=== PATIENT | male | born 1945 | race Caucasian/White ===

== ENCOUNTER 2017-05-23 18:50 | Emergency (ER) | payer MEDICARE ==
[~2017-05-23] VITALS: Ht 180.3 cm; Wt 103.2 kg
[2017-05-23 18:55] VITALS: TEMP 97.3
[2017-05-23 19:17] LABS: BASO # 0.1 (0.0-0.2); BASO % 1.1 % (0.0-2.0); EOS # 0.3 (0.0-0.7); EOS % 3.3 % (0-4.0); GRAN % 72.1 % (42.2-75.2); LYMPH # 1.1 (1.2-3.4); LYMPH % 13.1 % (20.0-51.0); MEAN CELL VOLUME 92 fl (80.0-100.0); MEAN CORPUSCULAR HEMOGLOBIN 32 pg (27.0-31.0); MEAN CORPUSCULAR HGB CONC 35 g/dl (33.0-37.0); MEAN PLATELET VOLUME 10.2 fl (7.4-10.4); MONO # 0.7 (0.1-0.6); MONO % 8.6 % (1.7-9.3); PLATELET COUNT 195 K/mm3 (130-400); REDCELL DISTRIBUTION WIDTH-CV 12.9 % (11.5-14.5); WHITE BLOOD COUNT 8.4 K/mm3 (4.8-10.8)
[2017-05-23 19:18] LABS: HEMATOCRIT 34.1 % (42.0-52.0)
[2017-05-23 19:30] LABS: ALBUMIN 4.7 gm/dL (3.5-5.0); BILIRUBIN,TOTAL 0.6 mg/dL (0.0-1.0); CALCIUM 9.6 mg/dL (8.4-10.2); CREATININE, serum 2.85 mg/dL (0.66-1.25); POTASSIUM 3.8 mmol/L (3.4-5.0); TOTAL PROTEIN 7.9 gm/dL (6.4-8.2)
[2017-05-23] MEDS ORDERED: ASPIRIN 81M81 MG/TA2 PO (19:40)
[2017-05-23 19:41] LABS: TROPONIN-I 0.017 ng/mL (0.000-0.034)
[2017-05-23] MEDS ORDERED: CATAPRES0.2 MG PO (19:41)
[2017-05-23] MEDS ORDERED: PLAVIX 75MG TAB75 MG PO (19:41)
[2017-05-23] MEDS ORDERED: COREG 25MG25 MG/TAB PO (19:41)
[2017-05-23] MEDS ORDERED: NORVASC 10MG10 MG PO (19:41)
[2017-05-23] MEDS ORDERED: APRESOLINE 25MG25 MG PO (19:42)
[2017-05-23 19:49] LABS: INR 1.1 (0.8-3.0); PROTHROMBIN TIME 11.7 SECONDS (9.7-12.8)
[2017-05-23] MEDS ORDERED: DEMADEX100 MG PO (20:03)
[2017-05-23] MEDS ORDERED: LIPITOR 80MG80 MG PO (20:05)
[2017-05-23] MEDS ORDERED: CATAPRES0.3 MG PO (20:05)
[2017-05-23] MEDS ORDERED: HUMULIN 70/3100 U/M1 SQ ×2 (20:06→20:07)
[2017-05-23] MEDS ORDERED: CARDURA 2MG2 MG PO (20:06)
[2017-05-23 21:50] VITALS: BP 158/78; PULSE 64
== END 2017-05-23 21:50 | disposition home or self-care (01) ==
LOC: COL.ER 18:50
PROVIDERS: Family Medicine
DX: R55 Syncope and collapse (principal); T82.49XA Other complication of vascular dialysis catheter, initial encounter; E11.22 Type 2 diabetes mellitus with diabetic chronic kidney disease; I12.0 Hypertensive chronic kidney disease with stage 5 chronic kidney disease or end stage renal disease; N18.6 End stage renal disease; Z99.2 Dependence on renal dialysis; I25.10 Atherosclerotic heart disease of native coronary artery without angina pectoris; I25.2 Old myocardial infarction; Z95.5 Presence of coronary angioplasty implant and graft; Z79.02 Long term (current) use of antithrombotics/antiplatelets; Z79.4 Long term (current) use of insulin

== ENCOUNTER → 2017-05-24 | Outpatient (CLI) | payer MEDICARE ==
[~2017-05-24] VITALS: Ht 180.3 cm; Wt 99.0 kg
[~2017-05-24] MED LIST: APRESOLINE 25MG25 MG PO; ASPIRIN 81M81 MG/TA2 PO; CARDURA 2MG2 MG PO; CATAPRES0.2 MG PO; CATAPRES0.3 MG PO; COREG 25MG25 MG/TAB PO; DEMADEX100 MG PO; HUMULIN 70/3100 U/M1 SQ; LIPITOR 80MG80 MG PO; NORVASC 10MG10 MG PO; PLAVIX 75MG TAB75 MG PO
[2017-05-24 15:30] VITALS: BP 158/72; PULSE 60
== END ==
LOC: COL.RAD 13:10
DX: Z49.01 Encounter for fitting and adjustment of extracorporeal dialysis catheter (principal); T82.598A Other mechanical complication of other cardiac and vascular devices and implants, initial encounter

== ENCOUNTER 2017-05-29 12:36 | Outpatient (CLI) | payer MEDICARE ==
[~2017-05-29] VITALS: Ht 180.3 cm; Wt 101.0 kg
[2017-05-29] VITALS (8 sets, daily range): BP systolic 135–149; BP diastolic 52–82; PULSE 60–67; TEMP 98.1–98.5
== END 2017-05-29 19:15 | disposition home or self-care (01) ==
LOC: COL.CAR 12:36
DX: T82.43XA Leakage of vascular dialysis catheter, initial encounter (principal); I25.10 Atherosclerotic heart disease of native coronary artery without angina pectoris; E11.9 Type 2 diabetes mellitus without complications; I10 Essential (primary) hypertension; Z79.01 Long term (current) use of anticoagulants; Z79.4 Long term (current) use of insulin
CPT/HCPCS: C1751; C1769; J0690; J1644; J2250; J3010; J7120

== ENCOUNTER → 2017-07-26 | Outpatient (CLI) | payer MEDICARE ==
[~2017-07-26] VITALS: Ht 180.3 cm; Wt 45.4 kg
[2017-07-26 11:24] VITALS: BP 152/73; PULSE 66
[2017-07-26 12:32] VITALS: BP 116/57; PULSE 61
== END ==
LOC: COL.RAD 10:58
DX: Z45.2 Encounter for adjustment and management of vascular access device (principal)

== ENCOUNTER 2018-01-05 09:57 | Outpatient (CLI) | payer MEDICARE ==
[~2018-01-05] VITALS: Ht 180.3 cm; Wt 101.8 kg
[2018-01-05] VITALS (9 sets, daily range): BP systolic 132–179; BP diastolic 61–82; PULSE 54–103; TEMP 97.2
[~2018-01-05 09:57] MED LIST changes: -CATAPRES0.3 MG PO
[2018-01-05] MEDS ORDERED: NITROSTAT0.4 MG/TAB SL (10:45)
[2018-01-05] MEDS ORDERED: DEMADEX100 MG PO (10:45)
[2018-01-05] MEDS ORDERED: TYLENOL 325MG325 MG PO (10:46)
[2018-01-05] MEDS ORDERED: STOOL SOFTENER100 M2 PO (10:46)
[2018-01-05] MEDS ORDERED: TUMS500 MG PO (10:46)
== END 2018-01-05 14:54 | disposition home or self-care (01) ==
LOC: COL.CAR 09:57
DX: T82.858A Stenosis of other vascular prosthetic devices, implants and grafts, initial encounter (principal); I25.119 Atherosclerotic heart disease of native coronary artery with unspecified angina pectoris; N40.0 Benign prostatic hyperplasia without lower urinary tract symptoms; E78.5 Hyperlipidemia, unspecified
CPT/HCPCS: J1644; J2250; J3010; Q9967

== ENCOUNTER 2019-01-05 11:50 | Inpatient (IN) | payer MEDICARE ==
[2019-01-05] VITALS (163 sets, daily range): BP systolic 137–148; BP diastolic 51–100; PULSE 70; TEMP 98.2; O2SAT 93–100
[~2019-01-05] VITALS: Ht 180.3 cm; Wt 105.2 kg
[~2019-01-05 11:50] MED LIST changes: +NITROSTAT0.4 MG/TAB SL; +STOOL SOFTENER100 M2 PO; +TUMS500 MG PO; +TYLENOL 325MG325 MG PO
[2019-01-05 12:46] LABS: BASO # 0.1 (0.0-0.2); BASO % 0.6 % (0.0-2.0); EOS # 0.2 (0.0-0.7); GRAN # 5.7 (1.4-6.5); GRAN % 71.2 % (42.2-75.2); HEMOGLOBIN 10.4 g/dl (13.5-18.0); LYMPH # 1.3 (1.2-3.4); LYMPH % 15.8 % (20.0-51.0); MEAN CELL VOLUME 100 fl (80.0-100.0); MEAN CORPUSCULAR HEMOGLOBIN 33 pg (27.0-31.0); MEAN CORPUSCULAR HGB CONC 33 g/dl (33.0-37.0); MEAN PLATELET VOLUME 10.8 fl (7.4-10.4); MONO # 0.7 (0.1-0.6); MONO % 8.4 % (1.7-9.3); PLATELET COUNT 163 K/mm3 (130-400); RED BLOOD COUNT 3.12 M/mm3 (4.20-5.60); REDCELL DISTRIBUTION WIDTH-CV 12.6 % (11.5-14.5)
[2019-01-05 12:47] LABS: HEMATOCRIT 31.3 % (42.0-52.0)
[2019-01-05 12:58] LABS: ALANINE AMINOTRANSFERASE 35 U/L (21-72); ALBUMIN 4.2 gm/dL (3.5-5.0); ALKALINE PHOSPHATASE 90 U/L (50-136); ANION GAP 14 mmol/L (7-16); AST,SGOT 24 U/L (15-37); BILIRUBIN,TOTAL 0.3 mg/dL (0.0-1.0); BLOOD UREA NITROGEN 117 mg/dL (9-20); CALCIUM 9.5 mg/dL (8.4-10.2); CARBON DIOXIDE 22 mmol/L (22-30); CHLORIDE 103 mmol/L (98-107); GLUCOSE 126 mg/dL (74-106); LIPASE 210 U/L (23-300); MAGNESIUM 3.2 mg/dL (1.6-2.3); SODIUM 139 mmol/L (137-145); TOTAL PROTEIN 7.1 gm/dL (6.4-8.2)
[2019-01-05 13:01] LABS: POTASSIUM 6.4 mmol/L (3.4-5.0)
[2019-01-05 13:09] LABS: TROPONIN-I < 0.012 ng/mL (0.000-0.035)
--- NOTE | 2019-01-05 14:45 | NUR ---
Report recieved from Lizett CANALES. Will be transporting patient to ICU after giving medications and finishing up medication list.
[2019-01-05] MEDS ORDERED: NEURONTIN100 MG/CAP PO (15:02)
[2019-01-05] MEDS ORDERED: NITRO-BID22 TOP (15:03)
--- NOTE | 2019-01-05 15:45 | NUR ---
Recieved call from ER nurse that patient will be going directly to dialysis before coming to ICU. Heart rate in 40's. at side
--- NOTE | 2019-01-05 19:05 | NUR ---
Received report from Mae Tomas RN. Pt is not on the unit at this time.
--- NOTE | 2019-01-05 19:15 | NUR ---
Report given to Latoya CANALES. Patient continues in dialysis.
--- NOTE | 2019-01-05 19:20 | NUR ---
Received phone report from dialysis nurse Louie. ETA to unit is approx. 10-15 minutes.
--- NOTE | 2019-01-05 19:40 | NUR ---
Pt arrived to ICU01 accompanied by Louie dialysis nurse, in current bed for the unit. Pt also accompanied by personal belongings and dinner tray.
[2019-01-06] VITALS (482 sets, daily range): BP systolic 144–165; BP diastolic 57–72; PULSE 70–89; TEMP 97.6–98.4; O2SAT 94–100
[2019-01-06 04:54] LABS: BASO # 0.1 (0.0-0.2); BASO % 0.6 % (0.0-2.0); EOS # 0.3 (0.0-0.7); EOS % 3.9 % (0-4.0); GRAN # 5.1 (1.4-6.5); GRAN % 64.5 % (42.2-75.2); HEMOGLOBIN 10.5 g/dl (13.5-18.0); LYMPH # 1.6 (1.2-3.4); LYMPH % 19.5 % (20.0-51.0); MEAN CELL VOLUME 99 fl (80.0-100.0); MEAN CORPUSCULAR HEMOGLOBIN 33 pg (27.0-31.0); MEAN CORPUSCULAR HGB CONC 33 g/dl (33.0-37.0); MEAN PLATELET VOLUME 10.5 fl (7.4-10.4); MONO # 0.8 (0.1-0.6); MONO % 10.6 % (1.7-9.3); PLATELET COUNT 195 K/mm3 (130-400); RED BLOOD COUNT 3.21 M/mm3 (4.20-5.60); REDCELL DISTRIBUTION WIDTH-CV 12.6 % (11.5-14.5)
[2019-01-06 04:56] LABS: HEMATOCRIT 31.8 % (42.0-52.0)
[2019-01-06 05:10] LABS: CALCIUM 9.3 mg/dL (8.4-10.2); POTASSIUM 4.8 mmol/L (3.4-5.0)
[2019-01-06 05:19] LABS: CREATININE, serum 8.25 mg/dL (0.66-1.25)
--- NOTE | 2019-01-06 05:27 | NUR ---
Lab called for critical Creat level. Physician not called at this time due to labs trending as expected.
--- NOTE | 2019-01-06 07:05 | NUR ---
Bedside report provided to Rosalind CANALES. Pt alert, resting in bed.
--- NOTE | 2019-01-06 07:15 | NUR ---
Bedside Report received from PARKER Klein. Patient currently resting in bed. VS WNL. Plan of care reviewed. Care taken over.
--- NOTE | 2019-01-06 12:16 | NUR ---
REPORT CALLED TO PARKER GREY. PLAN OF CARE REVIEWED. PATIENT WILL TRANSFER TO ROOM 348
--- NOTE | 2019-01-06 12:53 | NUR ---
Plan is to return home with Spouse Deborah and home health care. Assess: SW's visited with the patient. Patient reports that he resides in [place] with his . Nellynet reports that he uses [facility]. Patient reports that his PCP is Dr. Roper. Patient indicated that he has DPOA ppw at home. Patient is interest in home health care. Patient reports that he has not used home health care in the past and believe he may need it. Patient reports that he has an appointment in three months with his PCP. Patient reports that his will transport him home and that he no longer drives. Action: Educated patient on resources, faxed referral to home health care [place] the [facility] area of coverage. No addtional needs identified at this time.
[2019-01-07 04:25] VITALS: BP 130/54; PULSE 59; TEMP 97.8
[2019-01-07 06:58] LABS: BASO # 0.1 (0.0-0.2); BASO % 0.7 % (0.0-2.0); EOS # 0.3 (0.0-0.7); EOS % 3.3 % (0-4.0); GRAN # 7.1 (1.4-6.5); GRAN % 72.5 % (42.2-75.2); LYMPH # 1.4 (1.2-3.4); LYMPH % 14.4 % (20.0-51.0); MEAN CELL VOLUME 98 fl (80.0-100.0); MEAN CORPUSCULAR HEMOGLOBIN 34 pg (27.0-31.0); MEAN CORPUSCULAR HGB CONC 35 g/dl (33.0-37.0); MEAN PLATELET VOLUME 10.5 fl (7.4-10.4); MONO # 0.8 (0.1-0.6); MONO % 8.1 % (1.7-9.3); PLATELET COUNT 193 K/mm3 (130-400); RED BLOOD COUNT 3.25 M/mm3 (4.20-5.60); REDCELL DISTRIBUTION WIDTH-CV 12.3 % (11.5-14.5)
[2019-01-07 07:00] LABS: HEMATOCRIT 31.9 % (42.0-52.0)
[2019-01-07 07:11] LABS: CALCIUM 8.9 mg/dL (8.4-10.2)
[2019-01-07 07:25] LABS: CREATININE, serum 8.86 mg/dL (0.66-1.25)
--- NOTE | 2019-01-07 08:00 | NUR ---
PATIENT UP TO THE CHAIR WITH PHYSICAL THERAPY THIS MORNING. BREAKFAST TRAY ON BEDSIDE TABLE. PATIENT IS A&O. VSS. TELE IN PLACE. SIGNIFICANT TREMORS NOTED. BOWEL SOUNDS ACTIVE ALL FOUR QUADRANTS. PATIENT TOLERATING FOOD & LIQUIDS WITHOUT ANY COMPLAINTS OF N/V. POSITIVE PEDAL PULSES EQUAL BILATERALLY. AV FISTULA TO LEFT FOREARM NOTED. GOOD BRUIT AUSCULATATED AND THRILL PALPATED OVER AV FISTULA SITE. STRONG PULSE TO LUE. RIGHT AC TO INT. GENERALIZED WEAKNESS NOTED. PATIENT DENIES ANY COMPLAINTS OF SHORTNESS OF BREATH OR DIZZINESS. CALL LIGHT WITHIN REACH. PATIENT DENIES ANY OTHER NEEDS AT THIS TIME.
[2019-01-07 08:02] VITALS: BP 166/62; PULSE 62; TEMP 97.4
--- NOTE | 2019-01-07 10:00 | NUR ---
DR. BENTLEY NOTIFIED OF CRITICAL CREATININE: 8.86. NO ORDERS GIVEN AT THIS TIME.
--- NOTE | 2019-01-07 10:38 | NUR ---
Initial visit; Patient thanked Customer Loyalty Representative for looking in on him and offering God's blessings and keeping him in her prayers.
[2019-01-07 11:49] VITALS: BP 184/51; PULSE 75; TEMP 97.9
--- NOTE | 2019-01-07 13:45 | NUR ---
Lisa, at [facility], reports that they can accept the patient for services. SW to inform the patient and continue to follow.
[2019-01-07 15:19] VITALS: BP 181/65; PULSE 80; TEMP 97.7
[2019-01-07] MEDS ORDERED: COREG 6.256.25 MG/TA PO (16:10)
--- NOTE | 2019-01-07 16:44 | NUR ---
The patient is to discharge back home with his today, 01/07, with home health services for fci/PT/OT through [facility]. No additional needs at this time.
--- NOTE | 2019-01-07 17:45 | NUR ---
PATIENT'S RIGHT AC INT DC'D PER PENDING DISCHARGE. PATIENT TOLERATED WELL. DISCHARGE INSTRUCTIONS REVIEWED WITH PATIENT. ALL QUESTIONS ANSWERED. PATIENT PERSONAL BELONGINGS GATHERED. PATIENT TAKEN TO PERSONAL VEHICLE VIA WHEELCHAIR BY SURGICAL STAFF. PATIENT DISCHARGED.
== END 2019-01-07 17:45 | disposition home health service (06) | DRG 308 ==
LOC: COL.ER 11:50 → ICU 14:18 → SURG 14:18
PROVIDERS: Emergency Medicine; ADMIT Internal Medicine
PROC: 5A1D70Z Performance of Urinary Filtration, Intermittent, Less than 6 Hours Per Day (ICD-10-PCS; principal; 2019-01-05)
DX: I49.8 Other specified cardiac arrhythmias (principal); N18.6 End stage renal disease; I12.0 Hypertensive chronic kidney disease with stage 5 chronic kidney disease or end stage renal disease; N25.81 Secondary hyperparathyroidism of renal origin; E87.5 Hyperkalemia; I95.9 Hypotension, unspecified; E11.22 Type 2 diabetes mellitus with diabetic chronic kidney disease; Z99.2 Dependence on renal dialysis; I25.10 Atherosclerotic heart disease of native coronary artery without angina pectoris; E55.9 Vitamin D deficiency, unspecified; Z85.820 Personal history of malignant melanoma of skin; G25.0 Essential tremor; Z79.4 Long term (current) use of insulin; D63.1 Anemia in chronic kidney disease; Z95.5 Presence of coronary angioplasty implant and graft
CPT/HCPCS: J0610; J1815; J1940; J2310

== ENCOUNTER 2019-11-18 13:19 | Inpatient (IN) | payer MEDICARE ==
[~2019-11-18] VITALS: Ht 177.8 cm; Wt 97.6 kg
[~2019-11-18 13:19] MED LIST changes: +COREG 6.256.25 MG/TA PO; +DULCOLAX TAB5 MG PO; +NEURONTIN100 MG/CAP PO; +NITRO-BID22 TOP; +NOVOLIN R100 U/ML SQ
[2019-11-19 15:55] VITALS: BP 124/51; PULSE 65; TEMP 97.5
[2019-11-19] MEDS ORDERED: CORDARONE200 MG/TAB PO (17:27)
[2019-11-19] MEDS ORDERED: ELIQUIS 5MG PO (17:28)
[2019-11-19] MEDS ORDERED: PHOSLO667 MG PO (17:29)
[2019-11-19] MEDS ORDERED: EPOGEN2000 U/ML IJ (17:31)
[2019-11-19] MEDS ORDERED: DIFLUCAN200 MG PO (17:33)
[2019-11-19] MEDS ORDERED: NOVOLOG 100U100 U/M1 SQ (17:41)
[2019-11-19] MEDS ORDERED: LEVEMIR100 U/ML SQ (17:42)
[2019-11-19] MEDS ORDERED: ISOSORBIDE MON120 MG PO (17:44)
[2019-11-19] MEDS ORDERED: LIPITOR 80MG80 MG PO (17:46)
[2019-11-19] MEDS ORDERED: COREG 25MG25 MG/TAB PO (17:49)
[2019-11-19] MEDS ORDERED: ALBUTEROL0.83 MG/ML IH (17:52)
[2019-11-19] MEDS ORDERED: MUCINEX 60600 MG/TA1 PO (17:53)
[2019-11-19] MEDS ORDERED: APRESOLINE 25MG25 MG PO (17:54)
[2019-11-19] MEDS ORDERED: SENNA-S 50 MG-81 TAB PO (17:55)
--- NOTE | 2019-11-19 20:47 | NUR ---
EGG CRATE MATTRESS OVERLAY PLACED ON PATIENT'S BED, AFTER INFORMING PATIENT OF PLACEMENT. BED ALARM ENGAGED.
--- NOTE | 2019-11-19 21:52 | NUR ---
Received report from PARKER Ferro from [facility] this afternoon prior to patient leaving via ambulance to come to [facility] Room 335. She reported that patient is still on a Mechanical Soft diet with nectar thick liquids. He takes his pills whole 1 to 2 pills at a time with pudding. He is diabetic and gets ACHS accuchecks - see special low sliding scale in chart. He uses a urinal and is a 2 person transfer. He received dialysis today prior to leaving [facility]. He had a bowel movement this morning that was soft formed and brown. He has a new allergy to Propofol and caused infusion syndrome. This was put in his allergy list. He has a wound on his bottom. He had a blood transfusion yesterday and his Hgb was 8.4 at 8 AM this morning. He has a swollen testicle, a red coccyx and an old cath site in groin that is scabbed over. Patient arrived via ambulance at 1550 this afternoon and patient was transferred via slide board from ambulance bed to his [facility] bed. Deborah was by his side. Reported this off to night nurse.
[2019-11-20 04:19] VITALS: BP 135/46; PULSE 66; TEMP 97.7
--- NOTE | 2019-11-20 05:27 | NUR ---
PATIENT RESTING WITH EYES CLOSED, DOES NOT AWAKEN WHEN ROOM ENTERED. BREATHING NONLABORED AND EVEN. BED ALARM ENGAGED.
--- NOTE | 2019-11-20 07:34 | NUR ---
PATIENT RESTING IN BED DURING SHIFT CHANGE REPORT GIVEN TO DAY NURSE. BED ALARM ENGAGED
--- NOTE | 2019-11-20 08:00 | NUR ---
SEE MORNING SHIFT ASSESSMENT.
[2019-11-20 16:00] VITALS: BP 104/44; PULSE 63; TEMP 97.4
[2019-11-20 18:00] VITALS: BP 104/44; PULSE 63; TEMP 97.4
--- NOTE | 2019-11-20 20:06 | NUR ---
REPORT GIVEN TO PARKER BASS.
--- NOTE | 2019-11-20 20:15 | NUR ---
Patient rests in bed and assisted up in bed x2 assist. BLE elevated on pillow. Denies pain. BIMS completed and ST ordered. Patient initially disoriented to place states [place] but otherwise oriented to person, time, month and year. HS meds reviewed and given in pudding with HOB 90 degrees.
[2019-11-20 22:13] VITALS: BP 130/40; PULSE 59; TEMP 97.4
--- NOTE | 2019-11-21 00:45 | NUR ---
Patient has been resting with eyes closed on right side. Called for assist at this time onto bedpan and has medium orangish soft bm-cleaned by nurse. Mepilex to bottom CDI. Repostioned to left side.
--- NOTE | 2019-11-21 02:58 | NUR ---
Patient rests with eyes closed. Respirations with ease.
[2019-11-21 04:00] VITALS: BP 140/50; PULSE 59; TEMP 98.5
--- NOTE | 2019-11-21 04:00 | NUR ---
Patient repositioned up in bed and to right side. Denies pain or needs.
[2019-11-21 09:19] VITALS: BP 125/43; PULSE 66
--- NOTE | 2019-11-21 10:25 | NUR ---
Dr. Johnston called this morning asking about an EKG, reported that pt had already had one this morning. Now called RT Rosenda and asked why another order was entered, she is going to discuss with RT Cherelle.
[2019-11-21 12:12] VITALS: BP 90/36; PULSE 65; TEMP 97.5
[2019-11-21 14:37] LABS: BASO # 0.1 (0.0-0.2); BASO % 0.8 % (0.0-2.0); EOS # 0.2 (0.0-0.7); EOS % 3.1 % (0-4.0); GRAN # 5.3 (1.4-6.5); GRAN % 70.3 % (42.2-75.2); LYMPH # 1.4 (1.2-3.4); MEAN CELL VOLUME 104 fl (80.0-100.0); MEAN CORPUSCULAR HGB CONC 31 g/dl (33.0-37.0); MONO # 0.4 (0.1-0.6); MONO % 5.7 % (1.7-9.3); PLATELET COUNT 310 K/mm3 (130-400); RED BLOOD COUNT 2.15 M/mm3 (4.20-5.60); REDCELL DISTRIBUTION WIDTH-CV 16.4 % (11.5-14.5)
[2019-11-21 14:45] LABS: MEAN CORPUSCULAR HEMOGLOBIN 33 pg (27.0-31.0)
[2019-11-21 14:46] LABS: HEMATOCRIT 22.3 % (42.0-52.0)
[2019-11-21 14:50] LABS: ALBUMIN 3.2 gm/dL (3.5-5.0); BILIRUBIN,TOTAL 0.8 mg/dL (0.0-1.0); CALCIUM 8.1 mg/dL (8.4-10.2); CHOLESTEROL RISK RATIO 5.9; CREATININE, serum 5.73 (0.66-1.25); PHOSPHOROUS 3.3 mg/dL (2.5-4.5); POTASSIUM 3.1 mmol/L (3.4-5.0)
[2019-11-21 15:07] LABS: BILIRUBIN UNCONJUGATED 0.5 mg/dL (0.0-1.1); BILIRUBIN,DIRECT 0.2 mg/dL (0.0-0.4)
[2019-11-21 15:47] LABS: IRON,SERUM 39 ug/dL (35-150)
[2019-11-21 15:56] LABS: TOTAL IRON BINDING CAPACITY 255 ug/dL (261-462)
--- NOTE | 2019-11-21 17:17 | NUR ---
Pt returned to I[facility] 335 via wheelchair.
[2019-11-21 18:14] VITALS: BP 151/52; PULSE 68; TEMP 98.4
--- NOTE | 2019-11-21 19:30 | NUR ---
PLACED PT ON BEDPAN. HAD MED LOOSE RED EDILBERTO COLORED STOOL. SENT TO LAB FOR #1 OUT OF 3 STOOL FOR OB. PT NEEDED ASSISTANCE WITH TOILETING HYGIENE. CALL LIGHT IN REACH BED ALARM SET.
[2019-11-21 20:00] VITALS: BP 127/45; PULSE 71; TEMP 97.8
--- NOTE | 2019-11-21 20:00 | NUR ---
PT SITTING UP IN BED . TOOK HS MEDS WITH PUDDING. CONTINUED ASPIRATION PRECAUTIONS. NO CHOKING AT THIS TIME. DENIES PAIN. ADMITS TO SHORTNESS OF BREATH. O2 SAT 88-90%- ADDED O2 AT 1L NC. SEE ASSESSMENT FOR LUNG SOUNDS. PT VERY FATIGUED. PT HAS CONTINUOUS TREMORS TO BILAT EXTREMITIES. CALL LIGHT IN REACH. BED ALARM SET. PLAN FOR DIALYSIS AND 2UNITS PRBCS TOMORROW. PT VERBALIZES UNDERSTANDING
--- NOTE | 2019-11-21 21:26 | NUR ---
#1 STOOL FOR OB- NEGATIVE.
--- NOTE | 2019-11-21 22:07 | NUR ---
DAY SHIFT SUMMARY: Report from PARKER Black. Pt ate breakfast in bed, set up assist for meals, very weak with tremors to BUE, assist w/ pills w/ pudding and nectar thick liquids, mech soft diet avd to regular food/fluids w/ Dialysis & ADA at lunch after MBS with ST. NATALIE Colin Fistula removed of two BA w/ sm drainage. Pt denied N/V this morning, did report "woozy" at lunch while in wc, to HD in and HD RN reported pt placed on O2@1LPNC d/t SpO2 89%. Pt in bed at shift change, fatigued, bedside report to PARKER Gonzalez. Alarm on, call lt in reach. Dr. Johnston states he would order daily EKG's d/t prolonged QTC interval, saw no orders so placed these and notified RT. One time dose of Potassium per Dr. Olson.
[2019-11-22] VITALS (10 sets, daily range): BP systolic 89–128; BP diastolic 40–78; PULSE 58–71; TEMP 97.2–98.5
--- NOTE | 2019-11-22 09:20 | NUR ---
SW met with the patient to complete an initial intake, the patient is new to [facility]. The patient lives in [place] with his , Deborah. The patient has a cane, a shower chair, and shower handrails. The patient's PCP is Dr. Ruvalcaba and patient receives medications from [facility] in with no difficulties. The patient does not have advanced directives in the EMR but was interested in a DPOA-HC form. Form provided. RADU contacted the patient's , Deborah to discuss family meeting. Deborah was agreeable to a meeting at Monday, 11/26 at 1330 after the team meeting. field services director will continue to follow.
--- NOTE | 2019-11-22 09:30 | NUR ---
Patient working with ST at this time. Patient reported sleeping like a log last night. He spoke with family member on the phone this morning and was in a pleasent mood. Patient denied pain at this time. Patient signed consent form for the 2 units of blood he will receive during dialysis this afternoon. Heart rate regular and continues to be monitored with Tele. No loose stools this AM. Denies any nausea this morning. Will continue to monitor.
[2019-11-22 13:13] LABS: MEAN CELL VOLUME 104 fl (80.0-100.0); MEAN CORPUSCULAR HGB CONC 32 g/dl (33.0-37.0); MEAN PLATELET VOLUME 9.7 fl (7.4-10.4); PLATELET COUNT 280 K/mm3 (130-400); RED BLOOD COUNT 2.04 M/mm3 (4.20-5.60); REDCELL DISTRIBUTION WIDTH-CV 15.9 % (11.5-14.5)
[2019-11-22 13:18] LABS: ALBUMIN 3.2 gm/dL (3.5-5.0); CALCIUM 8.4 mg/dL (8.4-10.2); PHOSPHOROUS 5.3 mg/dL (2.5-4.5); POTASSIUM 4.3 mmol/L (3.4-5.0)
[2019-11-22 13:30] LABS: HEMATOCRIT 21.2 % (42.0-52.0); MEAN CORPUSCULAR HEMOGLOBIN 33 pg (27.0-31.0)
[2019-11-22 13:32] LABS: HEMOGLOBIN 6.7 g/dl (13.5-18.0)
--- NOTE | 2019-11-22 13:54 | NUR ---
Admission QIM scores were reviewed by the team. Code of 4 chosen for eating was determined by team discussion to be the most usual performance before interventions for this patient during the assessment period. Code of 4 chosen for rolling left to right was determined by team discussion to be the most usual performance before interventions for this patient during the assessment period. Code of 3 chosen for sit to lying was determined by team discussion to be the most usual performance for this patient during the assessment period. Code of 3 chosen for lying to sitting on side of bed was determined by team discussion to be the most usual performance for this patient during the assessment period. Code of 2 chosen for sit to stand was determined by team discussion to be the most usual performance before interventions for this patient during the assessment period. Code of 2 chosen for chair/bed-to chair transfer was determined by team discussion to be the most usual performance before interventions for this patient during the assessment period.--Ann Michael,
--- NOTE | 2019-11-22 14:04 | NUR ---
Care given to Dialysis nurse at 2:09 PM Vanessa Hopkins to follow through with monitoring while getting the transfusion.
[2019-11-22 14:26] LABS: ANISOCYTOSIS 1+; BAND 6 % (0-10); EOSINOPHIL 2 % (0-4); LYMPHOCYTE 16 % (20.0-51.0); METAMYELOCYTE 2 % (0-0); NEUTROPHILS 69 % (42.0-75.2); PLATELET ESTIMATE NORMAL (NORMAL)
[2019-11-22 14:43] LABS: RETIC # 0.1 M/mm3 (0.02-0.16); RETIC % 4.9 % (0.5-3.52)
--- NOTE | 2019-11-22 15:00 | NUR ---
Handed off care to dialysis nurse - PARKER Mendez while she administers blood transfusion. She will continue to monitor.
[2019-11-22 15:29] LABS: IRON,SERUM 57 ug/dL (35-150); LACTATE DEHYDROGENASE 818 U/L (313-618)
--- NOTE | 2019-11-22 17:00 | NUR ---
Received report from Dialysis nurse reporting that she took 1500 ml off patient today. Patient was given the 2 units of blood. VSS prior to leaving dialysis BP 130/59; P 64; T 97.6; 97% on 0.5 Liters oxygen.
--- NOTE | 2019-11-22 18:00 | NUR ---
Patient is resting in bed at this time. Denies any pain. Call light in reach, bed alarm is on and resting comfortable. Will continue to monitor.
[2019-11-23] VITALS (13 sets, daily range): BP systolic 68–146; BP diastolic 41–116; PULSE 47–67; TEMP 87.5–98.2
--- NOTE | 2019-11-23 05:00 | NUR ---
OBTAINED #3 STOOL FOR OB. CONTINUED 1500CC FLUID RESTRICTION. PT RELATES FEELS BETTER THIS AM. STAYED THE NIGHT.
--- NOTE | 2019-11-23 08:43 | NUR ---
Bedside report from PARKER Gonzalez. Pt's Deborah visiting. Pt's strength improving, he took pills himself with pudding and water. Held Elisha, third hemmocult neg, informed pt/. Having BM now with OT. Dressings to coccyx intact. TELE in place. Denies pain. Tremors present. Alert, pleasant.
--- NOTE | 2019-11-23 10:45 | NUR ---
At 0900 after lg BM, pt dizzy with standing, pivoted with OT assist to wc for therapies, sitting in wc playing YES.TAP at 1000 with another dizzy episode, see vitals, returned to room, 2 assist to bed for weakness/dizziness, then upper body visibly shaking, pt reports being cold, fell asleep, BG checked 244, alarm on, HOB at 15*, BLE elevated on two pillows, warm blankets. reports pt got hot last night- unusual for him. Called Yvrose RT about f/u EKG, dailys were not discontinued, did not see today's on chart, they will come soon. Reported concerns to Brooke, surg charge account identification clerk.
--- NOTE | 2019-11-23 14:47 | NUR ---
Tele called, pt has new dysrhythmia, reported to Dr. Medina who ordered new EKG, RT notified. Pt is asleep in bed, resp w/ ease, bed alarm on.
--- NOTE | 2019-11-23 18:09 | NUR ---
Boosted up in bed for supper, alarm on, call lt in reach. Pt reports feeling better this afternoon than this morning. Cut up chicken, assisted with containers. visited again, left. Dr. Medina reviewed EKG, no new changes.
--- NOTE | 2019-11-23 21:30 | NUR ---
PT RESTING IN BED. FATIGUED TONIGHT. CHANGED INTO GOWN W/MOD AMT ASSIST. SL DYSPNEIC WITH ACTIVITY. DENIES PAIN. TELE SR W/ 1ST DEGREE AVB. CALL LIGHT IN REACH. BED ALARM SET.
[2019-11-24] VITALS (7 sets, daily range): BP systolic 119–150; BP diastolic 43–99; PULSE 50–70; TEMP 97.4–98.3
--- NOTE | 2019-11-24 01:45 | NUR ---
TELEMETRY CALLED. RELATED EXTENDED QT. PT RESTING. ASYMPTOMATIC. NOTIFIED VIVIANE WHITE. NO NEW ORDERS.
--- NOTE | 2019-11-24 06:29 | NUR ---
TONGUE RED- THRUSH? PT RELATES PAINFUL.
--- NOTE | 2019-11-24 07:25 | NUR ---
Bedside report from PARKER Gonzalez. Pt was asleep in bed, alarm on, call lt in reach. SHANNON Houston is working with pt prior to breakfast.
--- NOTE | 2019-11-24 12:17 | NUR ---
Per report from PARKER Gonzalez, pt's tongue sore, no excessive redness noted upon visualization, orders for nystatin swish and swallow.
--- NOTE | 2019-11-24 18:42 | NUR ---
Pt called after supper, feeling "woozy" and faint, denies nausea, sitting up in bed, lowered HOB to 40*, cool washcloth to forehead, turned on fan. See VS
--- NOTE | 2019-11-24 21:00 | NUR ---
PT RESTING IN BED. A&O. RELATED HAD ANOTHER SPELL AROUND 1800 TODAY WITH DIZZINESS. DENIES ANY FURTHER EPISODES SINCE THEN. TELEMETRY INTACT. PT WEAK. PT DENIES PAIN. DIALYSIS TOMORROW. SEE ASSESSMENT FOR WOUND CARE TO COCCYX. CALL LIGHT IN REACH. BED ALARM SET.
[2019-11-25] VITALS (17 sets, daily range): BP systolic 108–148; BP diastolic 33–61; PULSE 42–126; TEMP 97.8–99
--- NOTE | 2019-11-25 07:24 | NUR ---
Report from PARKER Gonzalez. Pt was asleep in bed, awakened for breakfast, HOB elevated, set up assist for meal. Phoslo given with first bite of food. Pt takes pills 1-2 at a time with pudding then sips of thin liquids. Pt denied pain this morning. Night nurse reported pt slept well between cares. Pt called prior to 0800 to void. SHANNON Houston and this nurse assisted pt to BSC, using gait belt, FWW, few steps. Needed many attempts to stand, lots of tremors, pt weak. Left pt with Celso. Celso later called as pt was feeling poorly. See VS.
--- NOTE | 2019-11-25 08:30 | NUR ---
Pt was attempting to sit up in bed with SHANNON Houston, when he began having chest pain. Nitro given for pain 5/10 to mid-sternum, pt has known hx of CP. See VS. Called Tele, Rosalind reports not seeing any new rhythm changes. See physician notifications. Dr. Medina ordered cardiology consult, Dr. Salmeron notified and arrived to see pt. Repeated Nitro, pain 4/10 "muscular". Pt tells Dr. Salmeron is hurts to take deep breaths. Stat Labs, stat EKG ordered. Requested assist with IV start, Deb, surgical charge nurse and CHOCO Heller unable to start IV, TIFFNAY Rea here. Asked pt if he wanted nurse to call his , she was reached on cell at [phone], states she will be about an hour in getting here. Awaiting lab results for cardiology to determine next steps. Pt has remained responsive throughout.
[2019-11-25 09:36] LABS: ALBUMIN 3.1 gm/dL (3.5-5.0); BILIRUBIN,TOTAL 0.8 mg/dL (0.0-1.0); CALCIUM 8.3 mg/dL (8.4-10.2); CREATININE, serum 10.95 (0.66-1.25); MAGNESIUM 2.2 mg/dL (1.6-2.3); PHOSPHOROUS 4.5 mg/dL (2.5-4.5); POTASSIUM 4.1 mmol/L (3.4-5.0); TOTAL PROTEIN 6.8 gm/dL (6.4-8.2)
[2019-11-25 09:45] LABS: BASO # 0.1 (0.0-0.2); BASO % 0.4 % (0.0-2.0); EOS # 0.3 (0.0-0.7); EOS % 1.9 % (0-4.0); GRAN # 11.5 (1.4-6.5); GRAN % 81.4 % (42.2-75.2); LYMPH # 1.1 (1.2-3.4); LYMPH % 7.8 % (20.0-51.0); MEAN CELL VOLUME 100 fl (80.0-100.0); MEAN CORPUSCULAR HGB CONC 31 g/dl (33.0-37.0); MEAN PLATELET VOLUME 10.1 fl (7.4-10.4); MONO # 1.1 (0.1-0.6); MONO % 7.9 % (1.7-9.3); PLATELET COUNT 239 K/mm3 (130-400); RED BLOOD COUNT 2.78 M/mm3 (4.20-5.60); REDCELL DISTRIBUTION WIDTH-CV 16.9 % (11.5-14.5)
[2019-11-25 09:47] LABS: TROPONIN-I 0.019 ng/mL (0.000-0.035)
[2019-11-25 09:51] LABS: HEMATOCRIT 27.7 % (42.0-52.0); HEMOGLOBIN 8.6 g/dl (13.5-18.0); MEAN CORPUSCULAR HEMOGLOBIN 31 pg (27.0-31.0)
--- NOTE | 2019-11-25 10:31 | NUR ---
1 mg IV morphine given per Cardiology order. Pt reports it is starting to help a little. arrived, at bedside, reviewed prelim lab results. Started routine VS again.
--- NOTE | 2019-11-25 10:47 | NUR ---
Smith RT for a PRN tx
--- NOTE | 2019-11-25 14:39 | NUR ---
The patient was tranferred to medical floor. SW informed medical floor SW.
--- NOTE | 2019-11-25 20:44 | NUR ---
Report given to Elisa (SP?), medical nurse. Pt ate lunch and transferred in bed to HD with MEGAN Mendez RN. Enc to call if any questions. stayed in room until pt's belongings transferred to medical room 318, sent transfer packet with CAR ATTENDANT on cart of belongings. Pt was resting comfortably in HD session in bed when delivering new face sheet and pt labels to MEGAN Mendez RN.
== END 2019-11-25 13:30 | disposition short-term general hospital (02) | DRG 947 ==
PROVIDERS: Internal Medicine Nephrology; ADMIT Hospitalist
PROC: 5A1D70Z Performance of Urinary Filtration, Intermittent, Less than 6 Hours Per Day (ICD-10-PCS; principal; 2019-11-21)
DX: R53.81 Other malaise (principal); N18.6 End stage renal disease; J96.01 Acute respiratory failure with hypoxia; B37.7 Candidal sepsis; I12.0 Hypertensive chronic kidney disease with stage 5 chronic kidney disease or end stage renal disease; E44.0 Moderate protein-calorie malnutrition; E87.0 Hyperosmolality and hypernatremia; G72.9 Myopathy, unspecified; E66.9 Obesity, unspecified; E55.9 Vitamin D deficiency, unspecified; I25.10 Atherosclerotic heart disease of native coronary artery without angina pectoris; Z66 Do not resuscitate; D63.1 Anemia in chronic kidney disease; E78.1 Pure hyperglyceridemia; I48.91 Unspecified atrial fibrillation; E78.5 Hyperlipidemia, unspecified; I25.2 Old myocardial infarction; I49.5 Sick sinus syndrome; L89.309 Pressure ulcer of unspecified buttock, unspecified stage; H66.90 Otitis media, unspecified, unspecified ear; G89.29 Other chronic pain; G25.0 Essential tremor; M25.559 Pain in unspecified hip; G47.30 Sleep apnea, unspecified; M54.5 Low back pain; E11.22 Type 2 diabetes mellitus with diabetic chronic kidney disease; Z79.02 Long term (current) use of antithrombotics/antiplatelets; Z79.4 Long term (current) use of insulin; Z79.01 Long term (current) use of anticoagulants; Z95.5 Presence of coronary angioplasty implant and graft; Z99.2 Dependence on renal dialysis
CPT/HCPCS: 99222-AI; 99231-AI; 99232-AI; 99233-AI; 99239; J0882; J1644; J1815; J2270; J7030; P9016

== ENCOUNTER 2019-11-25 14:07 | Inpatient (IN) | payer MEDICARE ==
[~2019-11-25] VITALS: Ht 180.3 cm; Wt 94.2 kg
[~2019-11-25 14:07] MED LIST changes: +ALBUTEROL0.83 MG/ML IH; +CORDARONE200 MG/TAB PO; +DIFLUCAN200 MG PO; +ELIQUIS 5MG PO; +EPOGEN2000 U/ML IJ; +ISOSORBIDE MON120 MG PO; +LEVEMIR100 U/ML SQ; +MUCINEX 60600 MG/TA1 PO; +NOVOLOG 100U100 U/M1 SQ; +PHOSLO667 MG PO; +SENNA-S 50 MG-81 TAB PO
[2019-11-25 17:25] VITALS: BP 132/47; PULSE 92; TEMP 98
[2019-11-25 19:57] VITALS: BP 134/43; PULSE 71; TEMP 98
--- NOTE | 2019-11-25 20:00 | NUR ---
Received report from PARKER Pérez. Assessment complete. Alert and oriented. at bedside. C/O headache that pt states is tolerable. Denies any other pain, SOB, CP, or discomfort. Scheduled meds adminstered as ordered. AV fistula to LF with bruit and thrill, dressing in place, no redness or drainage. Tele monitor in place, leads checked. Tremors noted to BUE when asked to hold arms up, no tremors noted at rest. Pt and verbalized understanding of NPO status after midnight for lexiscan in AM. INT to RAC intact, dressing CDI, flushed. Needs met. Call light within reach.
[2019-11-25 23:39] VITALS: BP 156/46; PULSE 75; TEMP 98.3
[2019-11-26] VITALS (14 sets, daily range): BP systolic 78–123; BP diastolic 30–49; PULSE 61–88; TEMP 97.5–98.8
--- NOTE | 2019-11-26 05:14 | NUR ---
Assisted pt to bedpan as requested. No BM was made. Mepilex changed to sacral ulcer using ointment, bright pink center, without drainage. Needs met. Call light within reach.
--- NOTE | 2019-11-26 05:42 | NUR ---
remained at bedside. PT NPO since midnight.
[2019-11-26 05:58] LABS: BASO # 0.1 (0.0-0.2); BASO % 0.6 % (0.0-2.0); EOS # 0.2 (0.0-0.7); EOS % 1.6 % (0-4.0); GRAN # 9.4 (1.4-6.5); GRAN % 76.3 % (42.2-75.2); LYMPH # 1.4 (1.2-3.4); LYMPH % 11.4 % (20.0-51.0); MEAN CELL VOLUME 99 fl (80.0-100.0); MEAN CORPUSCULAR HGB CONC 31 g/dl (33.0-37.0); MEAN PLATELET VOLUME 9.8 fl (7.4-10.4); MONO # 1.2 (0.1-0.6); MONO % 9.3 % (1.7-9.3); PLATELET COUNT 209 K/mm3 (130-400); RED BLOOD COUNT 2.57 M/mm3 (4.20-5.60); REDCELL DISTRIBUTION WIDTH-CV 16.6 % (11.5-14.5)
[2019-11-26 05:59] LABS: HEMATOCRIT 25.5 % (42.0-52.0); MEAN CORPUSCULAR HEMOGLOBIN 31 pg (27.0-31.0)
[2019-11-26 06:05] LABS: ALBUMIN 3.1 gm/dL (3.5-5.0); CALCIUM 8.5 mg/dL (8.4-10.2); CREATININE, serum 9.32 (0.66-1.25); PHOSPHOROUS 4.6 mg/dL (2.5-4.5); POTASSIUM 3.4 mmol/L (3.4-5.0)
--- NOTE | 2019-11-26 07:22 | NUR ---
Report given to PARKER Campuzano.
--- NOTE | 2019-11-26 08:29 | NUR ---
Patient is going down to Nuc. Med for his Lexiscan stress test at this time, present in the room
--- NOTE | 2019-11-26 09:37 | NUR ---
RADU met with the patient's , Deborah (ph#[phone]), to discuss discharge plan. The patient was having a lexiscan. The patient transferred to the medical unit from [facility] for further management. The patient lives in [place] with his . Deborah reports that the patient is independent with ADLs and has a cane. The patient's PCP is Dr. Denys Ruvalcaba and he receives his insulin from [email or web address] and his other medications from [email or web address]. Deborah reports that the patient was just prescribed Eliquis and that she has concerns affording this. She states that she was provided with a free 30-day trial card and their assistance application. Deborah is also interested in applying for Medicaid for the patient. RADU consulted Financial Counselor, Dionna. The patient does not have advanced directives in EMR, but Deborah states that he does have them completed and that she is his DPOA-HC. Deborah reports that their goal is for the patient to return home upon discharge. RADU to continue to follow.
--- NOTE | 2019-11-26 10:34 | NUR ---
Assessment completed, alert/oriented, vital signs stable, denies any further chest pains or discomfort, heart RRR/ SR on tele, lungS CTA / no resp.difficulty noted, he has had lexiscan stress test this morning and we awaiting final reading from [facility] Specialist, present, he remains NPO untill stress test results ae in, denies needs
[2019-11-27 00:05] VITALS: BP 127/49; PULSE 65; TEMP 98.4
[2019-11-27 06:13] VITALS: BP 131/46; PULSE 67; TEMP 100.1
[2019-11-27 07:43] LABS: ALBUMIN 3.1 gm/dL (3.5-5.0); CALCIUM 8.6 mg/dL (8.4-10.2); CREATININE, serum 10.94 (0.66-1.25); PHOSPHOROUS 6.6 mg/dL (2.5-4.5); POTASSIUM 3.8 mmol/L (3.4-5.0)
[2019-11-27 08:10] LABS: BASO # 0.1 (0.0-0.2); BASO % 0.6 % (0.0-2.0); EOS # 0.6 (0.0-0.7); EOS % 6.6 % (0-4.0); GRAN # 6.6 (1.4-6.5); GRAN % 72.5 % (42.2-75.2); LYMPH % 11.1 % (20.0-51.0); MEAN CELL VOLUME 99 fl (80.0-100.0); MEAN CORPUSCULAR HGB CONC 32 g/dl (33.0-37.0); MEAN PLATELET VOLUME 10.1 fl (7.4-10.4); MONO # 0.8 (0.1-0.6); MONO % 8.3 % (1.7-9.3); PLATELET COUNT 214 K/mm3 (130-400); RED BLOOD COUNT 2.61 M/mm3 (4.20-5.60); REDCELL DISTRIBUTION WIDTH-CV 16.1 % (11.5-14.5)
[2019-11-27 08:11] LABS: HEMATOCRIT 25.8 % (42.0-52.0); HEMOGLOBIN 8.2 g/dl (13.5-18.0); MEAN CORPUSCULAR HEMOGLOBIN 31 pg (27.0-31.0)
--- NOTE | 2019-11-27 09:30 | NUR ---
Assessment completed, alert/orienteed, vitals signs stable / low grade temp and on recheck was down to WNL, denies any chest pain or dsicomfort, heart RRR/dstial pulses are palapble, denies any resp.difficulty and lungs are CTA, he is sitting up eating breakfast and is in the room, denies other needs at this time
[2019-11-27 11:27] VITALS: BP 109/49; PULSE 69; TEMP 98.6
[2019-11-27 16:17] VITALS: BP 111/41; PULSE 54; TEMP 98.1
[2019-11-27 19:04] VITALS: BP 112/34; PULSE 59; TEMP 98.5
--- NOTE | 2019-11-27 20:00 | NUR ---
Report received from PARKER Campuzano. Assessment complete. Alert and oriented. Denies any pain or discomfort at this time. RAC INT intact, flushed, dressing changed. LF fistula with bruit and thrill. Meds administered as ordered. Needs met. Call light within reach.
[2019-11-27 23:44] VITALS: BP 123/47; PULSE 73; TEMP 98.2
[2019-11-28 03:28] VITALS: BP 125/49; PULSE 70; TEMP 98.3
--- NOTE | 2019-11-28 05:26 | NUR ---
Pt uneventful during this shift. Made no complaints. Call light within reach.
--- NOTE | 2019-11-28 06:41 | NUR ---
Report given to PARKER Campuzano.
[2019-11-28 07:16] VITALS: BP 120/50; PULSE 71; TEMP 98
[2019-11-28 07:24] LABS: MEAN CELL VOLUME 97 fl (80.0-100.0); MEAN CORPUSCULAR HGB CONC 32 g/dl (33.0-37.0); MEAN PLATELET VOLUME 10.1 fl (7.4-10.4); PLATELET COUNT 256 K/mm3 (130-400); RED BLOOD COUNT 2.53 M/mm3 (4.20-5.60); REDCELL DISTRIBUTION WIDTH-CV 15.6 % (11.5-14.5)
[2019-11-28 07:26] LABS: HEMATOCRIT 24.6 % (42.0-52.0); HEMOGLOBIN 7.8 g/dl (13.5-18.0); MEAN CORPUSCULAR HEMOGLOBIN 31 pg (27.0-31.0)
[2019-11-28 07:32] LABS: CALCIUM 8.4 mg/dL (8.4-10.2); CREATININE, serum 13.09 (0.66-1.25); PHOSPHOROUS 6.3 mg/dL (2.5-4.5); POTASSIUM 3.7 mmol/L (3.4-5.0)
[2019-11-28 08:07] LABS: BAND 7 % (0-10); BASOPHIL 1 % (0-2); EOSINOPHIL 6 % (0-4); LYMPHOCYTE 26 % (20.0-51.0); NEUTROPHILS 58 % (42.0-75.2); PLATELET ESTIMATE NORMAL (NORMAL)
--- NOTE | 2019-11-28 08:32 | NUR ---
Assessment completed, alert/oriented, vital signs stable, denies chest pain or discomfort, denies any SOA or resp.difficulty, lungs CTA/ diminished bases, heart RRR/ distal pulses are palpable, encouraging activity and position changes as patient that stg.II ulcer to coccyx, he has been up ambulating multiple times / day and doing well, is please with improvements, denies othr needs at [facility]
[2019-11-28 11:30] VITALS: BP 98/39; PULSE 54; TEMP 98
--- NOTE | 2019-11-28 13:07 | NUR ---
PATIENT GOING DOWN TO DIAYLSIS AT THIS TIME
[2019-11-28 16:55] VITALS: BP 104/62; PULSE 65
[2019-11-28 20:29] VITALS: BP 117/46; PULSE 75; TEMP 98.5
--- NOTE | 2019-11-28 23:34 | NUR ---
PATIENT DOING WELL TONIGHT. ASSESSMENT DONE. ALERT AND ORIENTED. ASSISTED TO BATHROOM X1 ASSIST TO GET TO STANDING POSITION, THEN STANDBY. GAIT UNSTEADY AND WOBBLY. TREMORS NOTED IN UPPER EXTREMITIES. L FA FISTULA STRONG PULSE. BRUIT AND THRILL PRESENT. INT R AC PATENT AND FLUSHES. WBG 122, NO INSULIN NEEDED. TOOK SCHEDULED MEDICATIONS WITHOUT ISSUE. STAGE 2 COCCYX PRESSURE ULCER COVERED WITH MEPOPLEX. NO FURTHER NEEDS AT THIS TIME. WILL CONTINUE TO MONITOR.
[2019-11-29] VITALS (7 sets, daily range): BP systolic 99–142; BP diastolic 42–90; PULSE 57–78; TEMP 97.8–99.2
[2019-11-29 07:02] LABS: MEAN CELL VOLUME 97 fl (80.0-100.0); MEAN CORPUSCULAR HGB CONC 32 g/dl (33.0-37.0); MEAN PLATELET VOLUME 9.7 fl (7.4-10.4); PLATELET COUNT 264 K/mm3 (130-400); RED BLOOD COUNT 2.57 M/mm3 (4.20-5.60); REDCELL DISTRIBUTION WIDTH-CV 15.5 % (11.5-14.5)
[2019-11-29 07:12] LABS: MEAN CORPUSCULAR HEMOGLOBIN 31 pg (27.0-31.0)
[2019-11-29 07:21] LABS: CALCIUM 8.4 mg/dL (8.4-10.2); CREATININE, serum 9.57 (0.66-1.25); PHOSPHOROUS 3.8 mg/dL (2.5-4.5); POTASSIUM 3.7 mmol/L (3.4-5.0)
[2019-11-29 09:18] LABS: BAND 10 % (0-10); EOSINOPHIL 5 % (0-4); LYMPHOCYTE 20 % (20.0-51.0); METAMYELOCYTE 1 % (0-0); PLATELET ESTIMATE NORMAL (NORMAL)
[2019-11-29 09:43] LABS: NEUTROPHILS 96 % (42.0-75.2); TOXIC GRANULATION PRESENT
--- NOTE | 2019-11-29 11:10 | NUR ---
RADU collaborated with the patient's attending, Dr. Olson. Dr. Olson reports that the patient may be able to discharge next Monday, 12/02, and will need post-acute rehab. SW met with the patient to review discharge plan and to discuss PT/OT's recommendation of SNF and Dr. Olson recommendation. The patient is agreeable to SNF. SW presented and explained the Patient Choice Form and provided him with Medicare.Bevvy's list of nursing homes in the [facility]. The patient preferred 1) [facility]) [facility]. Patient Choice Form signed by the patient and she was provided a copy. RADU contacted and updated the patient's , Deborah. Deborah is supportive of the patient's choices. She states that they have tried [facility] is the past and have denied him, due to transportion needs to dialysis. RADU consulted I[facility] Director, Ann. RADU also attempted to contact Michelle at [facility]. RADU left her a voicemail and faxed over the referral. SW awaiting their screens.
--- NOTE | 2019-11-29 13:36 | NUR ---
Michelle, at [facility], reports that they would not be able to accept the patient. SW to inform the patient and his and will continue to follow.
--- NOTE | 2019-11-29 15:04 | NUR ---
RADU met with the patient to update on the referral to [facility]. The patient then preferred [facility] as his second preference. SW updated the patient's of his second preference and she was supportive of this choice. RADU contacted and faxed a referral to [facility]. SW to continue to follow.
--- NOTE | 2019-11-29 15:48 | NUR ---
Ravi, at [facility], reports that they are able to accept the patient for a skilled stay. SW to inform the patient and his and will continue to follow.
--- NOTE | 2019-11-29 20:10 | NUR ---
Shift assessment complete. Pt resting in bed, awake, a&o, cooperative c cares. Pt denies pain, SOB or any other c/o. No IV access per order. HD AVF noted to L forear, strong bruit/thrill. Tele in place. Pt denies needs. Call light in reach, bed alarm on. Will continue to monitor.
[2019-11-30 03:57] VITALS: BP 134/56; PULSE 65; TEMP 98.1
[2019-11-30 07:15] LABS: MEAN CELL VOLUME 98 fl (80.0-100.0); MEAN CORPUSCULAR HGB CONC 31 g/dl (33.0-37.0); MEAN PLATELET VOLUME 9.7 fl (7.4-10.4); PLATELET COUNT 295 K/mm3 (130-400); RED BLOOD COUNT 2.55 M/mm3 (4.20-5.60); REDCELL DISTRIBUTION WIDTH-CV 15.6 % (11.5-14.5)
[2019-11-30 07:26] LABS: ALBUMIN 2.9 gm/dL (3.5-5.0); CALCIUM 8.4 mg/dL (8.4-10.2); CREATININE, serum 11.06 (0.66-1.25); PHOSPHOROUS 4.1 mg/dL (2.5-4.5); POTASSIUM 3.9 mmol/L (3.4-5.0)
[2019-11-30 07:27] LABS: HEMATOCRIT 24.9 % (42.0-52.0); HEMOGLOBIN 7.8 g/dl (13.5-18.0); MEAN CORPUSCULAR HEMOGLOBIN 31 pg (27.0-31.0)
[2019-11-30 08:08] VITALS: BP 137/51; PULSE 65; TEMP 98
[2019-11-30 10:28] LABS: ANISOCYTOSIS 1+; BAND 11 % (0-10); EOSINOPHIL 5 % (0-4); HYPOCHROMIA 2+; LYMPHOCYTE 16 % (20.0-51.0); METAMYELOCYTE 4 % (0-0); MYELOCYTE 4 % (0-0); NEUTROPHILS 50 % (42.0-75.2); PLATELET ESTIMATE NORMAL (NORMAL)
--- NOTE | 2019-11-30 11:40 | NUR ---
Pt moved from floor to dialysis.
[2019-11-30 16:37] VITALS: BP 128/42; PULSE 68; TEMP 97.7
--- NOTE | 2019-11-30 18:03 | NUR ---
Pt resting in the room, Pt had dialysis late this morning, reported 800ml removed during, no C/O pain, VS have remained stable.
--- NOTE | 2019-11-30 20:40 | NUR ---
Shift assessment complete. Pt resting in bed, awake, a&o, cooperative c cares. Pt denies pain or any other c/o at this time. No IV access per order. HD AVF noted to L forearm, strong bruit/thrill. Tele in place. Pt denies further needs at this time. Call light in reach, bed alarm on. Will continue to monitor.
[2019-11-30 22:56] VITALS: BP 122/45; PULSE 58; TEMP 98.1
[2019-12-01 03:29] VITALS: BP 146/50; PULSE 71; TEMP 97.9
--- NOTE | 2019-12-01 07:53 | NUR ---
Pt sleeping upon entry, easily awakened, no C/O pain at this time, shift assessments complete, left Pt call light in reach, bed in lowest position.
[2019-12-01 08:00] VITALS: BP 94/41; PULSE 68; TEMP 98.5
[2019-12-01 08:31] LABS: MEAN CELL VOLUME 100 fl (80.0-100.0); MEAN CORPUSCULAR HGB CONC 31 g/dl (33.0-37.0); MEAN PLATELET VOLUME 9.8 fl (7.4-10.4); PLATELET COUNT 345 K/mm3 (130-400); REDCELL DISTRIBUTION WIDTH-CV 15.9 % (11.5-14.5)
[2019-12-01 08:40] LABS: HEMATOCRIT 26.1 % (42.0-52.0); MEAN CORPUSCULAR HEMOGLOBIN 31 pg (27.0-31.0)
[2019-12-01 08:57] LABS: ALBUMIN 2.9 gm/dL (3.5-5.0); CALCIUM 8.5 mg/dL (8.4-10.2); CREATININE, serum 8.22 (0.66-1.25); PHOSPHOROUS 3.2 mg/dL (2.5-4.5); POTASSIUM 3.9 mmol/L (3.4-5.0)
[2019-12-01 11:38] VITALS: BP 114/47; PULSE 52; TEMP 98.2
[2019-12-01 12:00] LABS: BAND 9 % (0-10); EOSINOPHIL 3 % (0-4); LYMPHOCYTE 22 % (20.0-51.0); METAMYELOCYTE 5 % (0-0); MYELOCYTE 5 % (0-0); NEUTROPHILS 52 % (42.0-75.2)
[2019-12-01 12:02] LABS: PLATELET ESTIMATE NORMAL (NORMAL)
[2019-12-01 12:03] LABS: HYPOCHROMIA 2+
[2019-12-01 12:06] LABS: ANISOCYTOSIS 1+
[2019-12-01 15:22] VITALS: BP 129/52; PULSE 61; TEMP 97.8
--- NOTE | 2019-12-01 18:31 | NUR ---
Pt rested in the room, no C/O pain today, VS have remained stable.
--- NOTE | 2019-12-01 19:50 | NUR ---
Shift assessment complete. Pt resting in bed, awake, a&o, cooperative c cares. Pt denies pain or any other c/o at this time. No IV access per order. HD AVF noted to L forearm, strong bruit/thrill. Pt denies further needs. Call light in reach, bed alarm on. Will continue to monitor.
[2019-12-01 20:12] VITALS: BP 115/44; PULSE 52; TEMP 97.7
[2019-12-02 00:13] VITALS: BP 143/54; PULSE 65; TEMP 97.9
[2019-12-02 03:44] VITALS: BP 130/45; PULSE 69; TEMP 97.4
[2019-12-02 07:40] VITALS: BP 154/57; PULSE 71; TEMP 97.4
[2019-12-02 07:45] LABS: MEAN CELL VOLUME 100 fl (80.0-100.0); MEAN CORPUSCULAR HGB CONC 31 g/dl (33.0-37.0); MEAN PLATELET VOLUME 9.5 fl (7.4-10.4); PLATELET COUNT 388 K/mm3 (130-400); RED BLOOD COUNT 2.73 M/mm3 (4.20-5.60)
[2019-12-02 07:47] LABS: HEMATOCRIT 27.4 % (42.0-52.0); HEMOGLOBIN 8.4 g/dl (13.5-18.0); MEAN CORPUSCULAR HEMOGLOBIN 31 pg (27.0-31.0)
[2019-12-02 07:58] LABS: ALBUMIN 3.1 gm/dL (3.5-5.0); CALCIUM 8.8 mg/dL (8.4-10.2); CREATININE, serum 10.44 (0.66-1.25); PHOSPHOROUS 3.5 mg/dL (2.5-4.5)
[2019-12-02 10:01] LABS: PATHOLOGY DIFF REVIEW OK
[2019-12-02 10:58] LABS: BAND 11 % (0-10); LYMPHOCYTE 26 % (20.0-51.0); METAMYELOCYTE 3 % (0-0); MYELOCYTE 1 % (0-0); NEUTROPHILS 50 % (42.0-75.2)
[2019-12-02 10:59] LABS: ANISOCYTOSIS 1+; PLATELET ESTIMATE NORMAL (NORMAL)
--- NOTE | 2019-12-02 16:27 | NUR ---
Used Car Salesperson contacted Ravi at [facility] and faxed updates. Patient may discharge tomorrow. Ann, [facility] Director informed SW that she would not be able to accept referral for patient. SW contacted patient's , Deborah to provide update. Deborah states her understanding is that the plan is for patient to discharge to [facility] tomorrow. SW to continue to follow.
[2019-12-02 18:05] VITALS: BP 145/55; PULSE 69; TEMP 98.3
[2019-12-02 20:08] VITALS: BP 155/49; PULSE 75; TEMP 98.1
--- NOTE | 2019-12-02 20:45 | NUR ---
Shift assessment complete. Pt resting in bed, awake, a&o, cooperative c cares. Pt denies pain or any other c/o. No IV access per order. HD AVF noted to L forearm, strong bruit/thrill. Tele in place. Pt denies needs at this time. Call light in reach, bed alarm on. Will continue to monitor.
[2019-12-02 23:34] VITALS: BP 147/50; PULSE 73; TEMP 98.5
[2019-12-03 03:35] VITALS: BP 144/48; PULSE 74; TEMP 97.8
[2019-12-03 07:06] LABS: MEAN CELL VOLUME 99 fl (80.0-100.0); MEAN CORPUSCULAR HGB CONC 32 g/dl (33.0-37.0); MEAN PLATELET VOLUME 9.2 fl (7.4-10.4); PLATELET COUNT 379 K/mm3 (130-400); RED BLOOD COUNT 2.55 M/mm3 (4.20-5.60); REDCELL DISTRIBUTION WIDTH-CV 15.9 % (11.5-14.5)
[2019-12-03 07:10] LABS: HEMATOCRIT 25.3 % (42.0-52.0); MEAN CORPUSCULAR HEMOGLOBIN 31 pg (27.0-31.0)
[2019-12-03 07:16] LABS: CALCIUM 8.5 mg/dL (8.4-10.2); CREATININE, serum 7.97 (0.66-1.25); POTASSIUM 4.1 mmol/L (3.4-5.0)
[2019-12-03 07:38] VITALS: BP 156/61; PULSE 72; TEMP 97.9
[2019-12-03 08:20] LABS: BAND 6 % (0-10); EOSINOPHIL 2 % (0-4); LYMPHOCYTE 24 % (20.0-51.0); METAMYELOCYTE 3 % (0-0); MYELOCYTE 2 % (0-0); NEUTROPHILS 55 % (42.0-75.2); PLATELET ESTIMATE NORMAL (NORMAL)
--- NOTE | 2019-12-03 08:29 | NUR ---
Pt awake and alert this morning, talkative, no C/O pain, shift assessments complete, left Pt call light in reach, bed in lowest position.
[2019-12-03 10:40] VITALS: BP 143/64; PULSE 78; TEMP 97.5
[2019-12-03] MEDS ORDERED: PROTONIX 40MG T40 MG PO (14:10)
[2019-12-03] MEDS ORDERED: DEMADEX100 MG PO (14:11)
[2019-12-03] MEDS ORDERED: ELIQUIS 2.5 PO (14:12)
[2019-12-03] MEDS ORDERED: COREG 6.256.25 MG/TA PO ×2 (14:16)
[2019-12-03] MEDS ORDERED: LEVEMIR FLEX100 U/ML SQ (14:18)
--- NOTE | 2019-12-03 14:18 | NUR ---
Amalgamator was notified that patient ready to discharge today to [facility]. RADU contacted Ravi at [facility] and faxed updates. RADU collaborated with Ravi to set up transport time for 1530. RADU notified Nilo CANALES of transport time. RADU met with patient and presented IM form. Patient understood and provided signature. RADU placed form on chart. RADU contacted patient's , Deborah and provided update.
--- NOTE | 2019-12-03 15:13 | NUR ---
gospel worker faxed discharge orders to [facility].
--- NOTE | 2019-12-03 15:48 | NUR ---
Pt discharged to [facility], Pt transported via their transportation dept.
== END 2019-12-03 15:49 | DRG 313 ==
LOC: MEDICAL 14:07
PROVIDERS: ADMIT Internal Medicine Nephrology
PROC: 5A1D70Z Performance of Urinary Filtration, Intermittent, Less than 6 Hours Per Day (ICD-10-PCS; principal; 2019-11-25)
DX: R07.89 Other chest pain (principal); N18.6 End stage renal disease; B37.7 Candidal sepsis; I12.0 Hypertensive chronic kidney disease with stage 5 chronic kidney disease or end stage renal disease; I25.10 Atherosclerotic heart disease of native coronary artery without angina pectoris; E66.9 Obesity, unspecified; N40.0 Benign prostatic hyperplasia without lower urinary tract symptoms; G25.0 Essential tremor; I45.10 Unspecified right bundle-branch block; G72.9 Myopathy, unspecified; I48.91 Unspecified atrial fibrillation; D63.1 Anemia in chronic kidney disease; E11.22 Type 2 diabetes mellitus with diabetic chronic kidney disease; H90.2 Conductive hearing loss, unspecified; E55.9 Vitamin D deficiency, unspecified; I07.1 Rheumatic tricuspid insufficiency; I25.2 Old myocardial infarction; Z68.30 Body mass index [BMI] 30.0-30.9, adult; Z79.01 Long term (current) use of anticoagulants; Z99.2 Dependence on renal dialysis; Z95.5 Presence of coronary angioplasty implant and graft; Z91.81 History of falling
CPT/HCPCS: A9500; J0882; J1815; J2785; J7030

== ENCOUNTER → 2020-03-17 | Outpatient (CLI) | payer MEDICARE ==
[~2020-03-17] MED LIST changes: +ELIQUIS 2.5 PO; +LEVEMIR FLEX100 U/ML SQ; +PROTONIX 40MG T40 MG PO
== END ==
LOC: ZCOL.LAB 15:00
DX: Z11.59 Encounter for screening for other viral diseases (principal); N18.6 End stage renal disease

== ENCOUNTER 2020-05-08 08:30 | Outpatient (CLI) | payer MEDICARE ==
[~2020-05-08] VITALS: Ht 180.3 cm; Wt 97.5 kg
[2020-05-08 08:50] VITALS: BP 191/90; PULSE 64; TEMP 98.5
[2020-05-08] MEDS ORDERED: COREG 6.256.25 MG/TA PO (09:28)
[2020-05-08] MEDS ORDERED: NOVOLIN 70100 UNIT/2 SQ (09:29)
[2020-05-08] MEDS ORDERED: DEMADEX100 MG PO (09:31)
[2020-05-08] MEDS ORDERED: RENA-VITE1 TAB PO (09:32)
[2020-05-08] MEDS ORDERED: COUMADIN 5MG5 MG/TAB PO (09:33)
[2020-05-08] MEDS ORDERED: COUMADIN 77.5 MG/TAB PO (09:34)
[2020-05-08] MEDS ORDERED: CEPHALEXIN500 M1 PO (10:07)
[2020-05-08 10:13] VITALS: BP 187/85; PULSE 65; TEMP 98.6
== END 2020-05-08 10:28 | disposition home or self-care (01) ==
LOC: COL.CAR 08:30
DX: I48.0 Paroxysmal atrial fibrillation (principal); E11.22 Type 2 diabetes mellitus with diabetic chronic kidney disease; I12.0 Hypertensive chronic kidney disease with stage 5 chronic kidney disease or end stage renal disease; N18.6 End stage renal disease; I25.10 Atherosclerotic heart disease of native coronary artery without angina pectoris; N40.0 Benign prostatic hyperplasia without lower urinary tract symptoms; E78.5 Hyperlipidemia, unspecified; I25.2 Old myocardial infarction; K21.9 Gastro-esophageal reflux disease without esophagitis; E66.9 Obesity, unspecified; M19.90 Unspecified osteoarthritis, unspecified site; Z85.828 Personal history of other malignant neoplasm of skin; Z88.8 Allergy status to other drugs, medicaments and biological substances; Z79.02 Long term (current) use of antithrombotics/antiplatelets; Z79.4 Long term (current) use of insulin; Z79.01 Long term (current) use of anticoagulants; Z99.2 Dependence on renal dialysis

== ENCOUNTER 2020-08-21 19:33 | Emergency (ER) | payer MEDICARE ==
[~2020-08-21] VITALS: Ht 177.8 cm; Wt 97.7 kg
[~2020-08-21 19:33] MED LIST changes: +CEPHALEXIN500 M1 PO; +COUMADIN 5MG5 MG/TAB PO; +COUMADIN 77.5 MG/TAB PO; +NOVOLIN 70100 UNIT/2 SQ; +RENA-VITE1 TAB PO
[2020-08-21 19:40] VITALS: TEMP 97.7
[2020-08-21 20:41] LABS: MEAN CELL VOLUME 99 fl (80.0-100.0); MEAN CORPUSCULAR HGB CONC 33 g/dl (33.0-37.0); MEAN PLATELET VOLUME 9.4 fl (7.4-10.4); PLATELET COUNT 285 K/mm3 (130-400); RED BLOOD COUNT 2.95 M/mm3 (4.20-5.60); REDCELL DISTRIBUTION WIDTH-CV 12.8 % (11.5-14.5)
[2020-08-21 20:42] LABS: HEMATOCRIT 29.1 % (42.0-52.0); HEMOGLOBIN 9.7 g/dl (13.5-18.0); MEAN CORPUSCULAR HEMOGLOBIN 33 pg (27.0-31.0)
[2020-08-21 20:55] LABS: ALBUMIN 3.8 gm/dL (3.5-5.0); BILIRUBIN,TOTAL 0.5 mg/dL (0.0-1.0); CALCIUM 8.8 mg/dL (8.4-10.2); CREATININE, serum 4.42 (0.66-1.25); TOTAL PROTEIN 7.2 gm/dL (6.4-8.2)
[2020-08-21 21:06] LABS: C-REACTIVE PROTEIN 11.6 mg/dL (0.0-0.9)
[2020-08-21 21:16] LABS: INR 5.2 (0.8-3.0); PROTHROMBIN TIME 59.5 SECONDS (9.7-12.8)
[2020-08-21 21:24] LABS: BAND 1 % (0-10); EOSINOPHIL 1 % (0-4); LYMPHOCYTE 15 % (20.0-51.0); MYELOCYTE 1 % (0-0); NEUTROPHILS 75 % (42.0-75.2); PLATELET ESTIMATE NORMAL (NORMAL)
[2020-08-21 21:42] VITALS: BP 186/84; PULSE 65
[2020-08-21] MEDS ORDERED: DOXYCYCLINE 10100 MG PO (21:42)
== END 2020-08-21 22:00 | disposition home or self-care (01) ==
LOC: COL.ER 19:33
PROVIDERS: Emergency Medicine
DX: L98.9 Disorder of the skin and subcutaneous tissue, unspecified (principal); I13.11 Hypertensive heart and chronic kidney disease without heart failure, with stage 5 chronic kidney disease, or end stage renal disease; N18.6 End stage renal disease; I25.10 Atherosclerotic heart disease of native coronary artery without angina pectoris; E11.9 Type 2 diabetes mellitus without complications; Z99.2 Dependence on renal dialysis; Z88.4 Allergy status to anesthetic agent; Z79.02 Long term (current) use of antithrombotics/antiplatelets; Z79.01 Long term (current) use of anticoagulants; Z79.4 Long term (current) use of insulin

== ENCOUNTER 2021-02-20 15:16 | Observation (INO) | payer MEDICARE ==
[2021-02-20] VITALS (35 sets, daily range): BP systolic 132; BP diastolic 51; PULSE 56; TEMP 97.5; O2SAT 93–100
[~2021-02-20] VITALS: Ht 180.3 cm; Wt 98.2 kg
[~2021-02-20 15:16] MED LIST changes: +DOXYCYCLINE 10100 MG PO
[2021-02-20 15:44] LABS: BASO # 0.1 (0.0-0.2); BASO % 0.8 % (0.0-2.0); EOS # 0.2 (0.0-0.7); EOS % 2.5 % (0-4.0); GRAN % 62.3 % (42.2-75.2); HEMATOCRIT 33.2 % (42.0-52.0); HEMOGLOBIN 10.9 g/dl (13.5-18.0); LYMPH # 1.6 (1.2-3.4); LYMPH % 24.8 % (20.0-51.0); MEAN CELL VOLUME 100 fl (80.0-100.0); MEAN CORPUSCULAR HEMOGLOBIN 33 pg (27.0-31.0); MEAN CORPUSCULAR HGB CONC 33 g/dl (33.0-37.0); MEAN PLATELET VOLUME 9.9 fl (7.4-10.4); MONO # 0.6 (0.1-0.6); PLATELET COUNT 249 K/mm3 (130-400); RED BLOOD COUNT 3.33 M/mm3 (4.20-5.60); REDCELL DISTRIBUTION WIDTH-CV 13.3 % (11.5-14.5)
[2021-02-20 15:46] LABS: INR 2.1 (0.8-3.0); PROTHROMBIN TIME 23.4 SECONDS (9.7-12.8)
[2021-02-20 15:48] LABS: ALANINE AMINOTRANSFERASE 26 U/L (4-49); ALBUMIN 4.3 gm/dL (3.5-5.0); ALKALINE PHOSPHATASE 121 U/L (50-136); ANION GAP 11 mmol/L (7-16); AST,SGOT 25 U/L (15-37); BILIRUBIN,TOTAL 0.4 mg/dL (0.0-1.0); BLOOD UREA NITROGEN 24 mg/dL (9-20); CALCIUM 8.9 mg/dL (8.4-10.2); CARBON DIOXIDE 31 mmol/L (22-30); CHLORIDE 96 mmol/L (98-107); CREATININE, serum 4.01 (0.66-1.25); GLUCOSE 78 mg/dL (74-106); POTASSIUM 3.4 mmol/L (3.4-5.0); SODIUM 138 mmol/L (137-145); TOTAL PROTEIN 7.9 gm/dL (6.4-8.2)
[2021-02-20 16:01] LABS: TROPONIN-I < 0.012 ng/mL (0.000-0.035)
[2021-02-20] MEDS ORDERED: ALBUTEROL0.83 MG/ML IH (16:30)
[2021-02-20 19:56] LABS: COLLECTION METHOD IN
[2021-02-20 20:02] LABS: MUCOUS Present /lpf; PH 8 (5-8); SQUAMOUS EPITHELIAL None Seen /hpf; URINE APPEARANCE Clear; URINE BACTERIA Rare /hpf; URINE BILIRUBIN Negative (NEGATIVE); URINE BLOOD Negative (NEGATIVE); URINE COLOR Yellow; URINE GLUCOSE Negative (NEGATIVE); URINE KETONE Negative (NEGATIVE); URINE LEUKOCYTE ESTERASE Negative (NEGATIVE); URINE NITRATE Negative (NEGATIVE); URINE PROTEIN(semi-quant) 2+ (NEGATIVE); URINE RBC 0-2 /hpf; URINE UROBILINOGEN Negative (NEGATIVE); URINE WBC 0-2 /hpf
[2021-02-21] VITALS (7 sets, daily range): BP systolic 139–187; BP diastolic 46–68; PULSE 55–71; TEMP 97.5–98
[2021-02-21 06:19] LABS: BASO % 0.7 % (0.0-2.0); EOS # 0.2 (0.0-0.7); GRAN # 3.4 (1.4-6.5); GRAN % 63.7 % (42.2-75.2); LYMPH # 1.1 (1.2-3.4); LYMPH % 20.4 % (20.0-51.0); MEAN CELL VOLUME 99 fl (80.0-100.0); MEAN CORPUSCULAR HGB CONC 33 g/dl (33.0-37.0); MEAN PLATELET VOLUME 10.2 fl (7.4-10.4); MONO # 0.6 (0.1-0.6); MONO % 11.6 % (1.7-9.3); PLATELET COUNT 210 K/mm3 (130-400); RED BLOOD COUNT 3.05 M/mm3 (4.20-5.60); REDCELL DISTRIBUTION WIDTH-CV 13.3 % (11.5-14.5)
[2021-02-21 06:28] LABS: HEMATOCRIT 30.1 % (42.0-52.0); HEMOGLOBIN 9.9 g/dl (13.5-18.0); MEAN CORPUSCULAR HEMOGLOBIN 32 pg (27.0-31.0)
[2021-02-21 06:36] LABS: ALBUMIN 3.5 gm/dL (3.5-5.0); CALCIUM 8.1 mg/dL (8.4-10.2); CREATININE, serum 5.6 (0.66-1.25); PHOSPHOROUS 3.6 mg/dL (2.5-4.5); POTASSIUM 3.2 mmol/L (3.4-5.0)
--- NOTE | 2021-02-21 06:55 | NUR ---
awake reviewing menu, bedside shift report received from PARKER Jean
--- NOTE | 2021-02-21 10:00 | NUR ---
resting in bed, full assessment completed, reviewed assessment completed by student and in agreement with that assessment, denies needs
--- NOTE | 2021-02-21 11:02 | NUR ---
Dr Salmeron was in to see patient
--- NOTE | 2021-02-21 12:03 | NUR ---
Pt. given 25 mg. of PRN hydralazine for BP 184/66
--- NOTE | 2021-02-21 13:19 | NUR ---
Re-checked BP after administering hydralazine. BP 150/68.
--- NOTE | 2021-02-21 14:18 | NUR ---
Dr Olson in to see patient, reported his K of 3.3 and the report from the medtronic rep regarding his loop recorder, informed Dr Olson tech reports sinus rhythmn with PVCs and that the recorder calls it a-fib
--- NOTE | 2021-02-21 14:32 | NUR ---
WUSN charting reviewed by this instructor, agree with findings and charting.
--- NOTE | 2021-02-21 15:08 | NUR ---
visiting with , denies needs
--- NOTE | 2021-02-21 17:12 | NUR ---
assisted up to bathroom to void
--- NOTE | 2021-02-21 18:40 | NUR ---
awake resting in bed, bedside shift report given to PARKER Carl
--- NOTE | 2021-02-21 19:10 | NUR ---
Received report from Kailey. Seen patient awake in bed. He denies pain. Assisted him to the bathroom. He uses walker and a standby assist. Assisted back to bed. Denies needs at this time.
--- NOTE | 2021-02-21 20:50 | NUR ---
Assesment done. Lungs are clear. He denies pain. INT on right AC flushes well. Informed patient he will have echo vanda. Patient states he had quite a few of bowel movement already. Senokot not given. SCD on bilateral lower ext. Call light within reach.
--- NOTE | 2021-02-21 22:11 | NUR ---
Assisted patient to the bathroom. Patient states he has a sore on his right butt cheek that has a dressing that needs to be changed. He said his dressing was placed last Monday. No open wound noted. Looks like peeled skin. Placed new dressing.
[2021-02-22 00:16] VITALS: BP 158/60; PULSE 85; TEMP 98.6
--- NOTE | 2021-02-22 01:04 | NUR ---
Patient called saying " I think my blood sugar is low and im burning and sweating." Blood glucose taken, it was 51 mg/dl. Gave patient apple juice. Rechecked after 15 minutes and it is now at 77mg/dl. He states he feels much better now but prefers to drink another juice and to have his glucose rechecked again. Rechecked after 15 minutes and it now at 110mg/dl.
[2021-02-22 04:02] VITALS: BP 148/60; PULSE 60; TEMP 98.4
--- NOTE | 2021-02-22 06:03 | NUR ---
Patient states he feels better now. He's been calling for assistance whenever he needs to go to the bathroom. He denies pain. Heart rate had been above 60's.
[2021-02-22 06:06] LABS: BASO # 0.1 (0.0-0.2); BASO % 0.7 % (0.0-2.0); EOS # 0.2 (0.0-0.7); EOS % 3.2 % (0-4.0); GRAN % 59.3 % (42.2-75.2); LYMPH # 1.7 (1.2-3.4); LYMPH % 24.6 % (20.0-51.0); MEAN CELL VOLUME 100 fl (80.0-100.0); MEAN CORPUSCULAR HEMOGLOBIN 33 pg (27.0-31.0); MEAN CORPUSCULAR HGB CONC 33 g/dl (33.0-37.0); MEAN PLATELET VOLUME 10.2 fl (7.4-10.4); MONO # 0.8 (0.1-0.6); MONO % 11.6 % (1.7-9.3); PLATELET COUNT 219 K/mm3 (130-400); RED BLOOD COUNT 3.07 M/mm3 (4.20-5.60); REDCELL DISTRIBUTION WIDTH-CV 13.4 % (11.5-14.5)
[2021-02-22 06:22] LABS: HEMATOCRIT 30.7 % (42.0-52.0)
[2021-02-22 06:22] LABS: ALBUMIN 3.5 gm/dL (3.5-5.0); CALCIUM 8.3 mg/dL (8.4-10.2); CREATININE, serum 7.73 (0.66-1.25); POTASSIUM 3.4 mmol/L (3.4-5.0)
[2021-02-22 07:30] VITALS: BP 153/60; PULSE 63; TEMP 97.9
[2021-02-22 08:24] VITALS: BP 153/54; PULSE 73; TEMP 97.6
--- NOTE | 2021-02-22 08:33 | NUR ---
Pt. was assessed. A&OX4. BP slightly elevated at 153/54. No complaints of pain at this time. Stated that dressing on right upper buttock was changed yesterday evening. No other skin integrity issues present upon assessment. Slight tremor noted in bilateral hands. Roll Winder are equal. No redness on heels/feet. Blood glucose obtained at bedside and result was 136.
--- NOTE | 2021-02-22 09:21 | NUR ---
Pt assessment complete. Pt has a student nurse caring for him this am. Pt is sitting up in bed upon entry, he is A/O x4. His breathing is even and unlabored on RA. Pt denies SOB. No pain at this time. Denies N/V. Mepilex to bottom, CDI. SCD's in place. No needs at this time.
[2021-02-22 11:25] VITALS: BP 157/51; PULSE 67; TEMP 98.2
[2021-02-22] MEDS ORDERED: ISOSORBIDE MON120 MG PO (12:14)
[2021-02-22] MEDS ORDERED: NORVASC2.5 MG PO (12:16)
[2021-02-22] MEDS ORDERED: DEMADEX100 MG PO (12:17)
--- NOTE | 2021-02-22 14:21 | NUR ---
WUSN assessment and charting reviewed by this instructor, agree with documentation.
--- NOTE | 2021-02-22 14:28 | NUR ---
Pt. is currently receiving dialysis. He was not able to eat lunch beforehand but a tray was ordered. Pt. denies any complaints of pain or lightheadedness when I checked on him. No other needs identified at this time.
[2021-02-22 16:34] VITALS: BP 155/56; PULSE 74; TEMP 98.1
--- NOTE | 2021-02-22 17:12 | NUR ---
Discharge instructions and paperwork reviewed with patient. All questions answered at this time. IV to RAC dc'd catheter tip intact. Pt wheeled out at this time.
== END 2021-02-22 17:13 | disposition home or self-care (01) ==
LOC: COL.ER 15:16 → MEDICAL 17:15 → ICU 17:15 → MEDICAL 20:05
PROVIDERS: Nurse Practitioner Primary Care; ADMIT Internal Medicine Nephrology
DX: I49.8 Other specified cardiac arrhythmias (principal); R55 Syncope and collapse; I16.0 Hypertensive urgency; I48.91 Unspecified atrial fibrillation; N18.6 End stage renal disease; I25.10 Atherosclerotic heart disease of native coronary artery without angina pectoris; I25.2 Old myocardial infarction; I12.0 Hypertensive chronic kidney disease with stage 5 chronic kidney disease or end stage renal disease; D63.1 Anemia in chronic kidney disease; E66.9 Obesity, unspecified; E11.22 Type 2 diabetes mellitus with diabetic chronic kidney disease; G47.30 Sleep apnea, unspecified; E55.9 Vitamin D deficiency, unspecified; N25.81 Secondary hyperparathyroidism of renal origin; G89.29 Other chronic pain; M54.30 Sciatica, unspecified side; Z99.2 Dependence on renal dialysis; Z79.899 Other long term (current) drug therapy; Z79.4 Long term (current) use of insulin; Z79.01 Long term (current) use of anticoagulants; Z88.8 Allergy status to other drugs, medicaments and biological substances
CPT/HCPCS: G0378; J1644; J1815; J7030

== ENCOUNTER 2022-09-28 07:11 | Day surgery (SDC) | payer MEDICARE ==
[~2022-09-28] VITALS: Ht 182.9 cm; Wt 93.1 kg
[2022-09-28] VITALS (16 sets, daily range): BP systolic 111–192; BP diastolic 37–150; PULSE 41–60; TEMP 97.3–98.2
[~2022-09-28 07:11] MED LIST changes: +COLACE 100100 MG/CAP PO; +LIPITOR 40MG TA40 MG PO; +NORVASC2.5 MG PO; -SENNA-S 50 MG-81 TAB PO
[2022-09-28 08:11] LABS: HEMATOCRIT 35.8 % (42.0-52.0); HEMOGLOBIN 11.5 g/dl (13.5-18.0); MEAN CELL VOLUME 104 fl (80.0-100.0); MEAN CORPUSCULAR HEMOGLOBIN 34 pg (27-31); MEAN CORPUSCULAR HGB CONC 32 g/dl (33.0-37.0); MEAN PLATELET VOLUME 9.6 fl (7.4-10.4); PLATELET COUNT 199 K/mm3 (130-400); RED BLOOD COUNT 3.43 M/mm3 (4.20-5.60); REDCELL DISTRIBUTION WIDTH-CV 13.4 % (11.5-14.5)
[2022-09-28 08:25] LABS: CALCIUM 8.8 mg/dL (8.4-10.2); CREATININE, serum 7.77 mg/dL (0.72-1.25); POTASSIUM 4.3 mmol/L (3.5-4.5)
[2022-09-28 08:28] LABS: INR 1.7 (0.8-3.0); PROTHROMBIN TIME 19.5 SECONDS (9.7-12.8)
[2022-09-28 08:31] LABS: PARTIAL THROMBOPLASTIN TIME 38.2 SECONDS (26.0-37.0)
[2022-09-28] MEDS ORDERED: REQUIP 1MG T1 MG/TAB PO (08:47)
[2022-09-28] MEDS ORDERED: PROTONIX 40MG T40 MG PO (08:47)
[2022-09-28] MEDS ORDERED: IMDUR 60MG60 MG/TAB PO (08:48)
[2022-09-28] MEDS ORDERED: DEMADEX100 MG PO (08:51)
[2022-09-28] MEDS ORDERED: NORVASC 5MG5 MG/TAB PO (08:52)
[2022-09-28] MEDS ORDERED: SODIUM BICARBO650 MG PO (08:53)
[2022-09-28] MEDS ORDERED: RENVELA800 MG PO (08:53)
[2022-09-28] MEDS ORDERED: TYLENOL 500MG500 MG PO (08:54)
--- NOTE | 2022-09-28 09:35 | NUR ---
See merge for all medication, assessment,intervention, and vital sign times.
--- NOTE | 2022-09-28 10:44 | NUR ---
Report received pt to transfer to [facility].
--- NOTE | 2022-09-28 10:54 | NUR ---
PATIENT RECEIVED FROM DIVISION DIRECTOR TO ROOM 319 AT 10:55. PATIENT IS AWAKE, ALERT, AND ORIENTED X4. BLOOD PRESSRE ELEVATED AT 192/63, HR 60, RR: 17, TEMP: 97.8, O2: 99% ON RA. FAMILY AT BEDSIDE. DENIES ANY PAIN AT THIS TIME. ORIENTED TO ROOM AND CALL LIGHT, DENIES NEEDS AT THIS TIME. EDUCATION PROVIDED ON RADIAL COMPRESSION BAND, PT VERBALIZES UNDERSTANDING. RADIAL PULSES 2+. CALL LIGHT WITHIN REACH.
--- NOTE | 2022-09-28 11:25 | NUR ---
PATIENT WITH BLOOD PRESSURE 192/63, HR 60. CARDIOLOGY UPDATED. NEW ORDERS RECEIVED. PER DAVID FOWLER TO GET BLOOD PRESSURES IN UPPER RIGHT EXTREMITY DUE TO LEFT EXTREMTIY RESTRICTION FROM DIALYSIS.
--- NOTE | 2022-09-28 12:56 | NUR ---
CARDIOLOGY UPDATED REGARDING BRADYCARDIA, PATIENT'S HR IS RANGING FROM 47-60. PATIENT IS ASYMPTOMATIC. CARDIOLOGY ALSO UPDATED REGARDING SCANT BLEEDING TO IV SITE, COBAN APPLIED. NO NEW ORDERS AT THIS TIME.
--- NOTE | 2022-09-28 13:47 | NUR ---
Reviewed discharge instructions for radial heart catheterization. Cleaning site with mild soap and water, pat dry. Discussed monitoring for redness, hot to touch, inflammation, or temperature >100.4. Discussed when to contact the physician for signs of symptoms of complications or DE. Also reviewed risk factors for heart disease. Covered applicable modifiable risk factors including the following: tobacco cessation, HTN, hyperlipidemia, diabetes, overweight/obesity, sedentary lifestyle, and stress/depression. Patient verbalized understanding. Patient declined referral to Cardiac Rehab at this time, has had multiple stents in the past and has never attended Cardiac Rehab. Approx time spend with patient - 10 min face to face.
--- NOTE | 2022-09-28 15:08 | NUR ---
PATIENT CONTINUING TO BE BRADYCARDIC WITH HR RANGING BETWEEN 40-45. CONTINUES TO BE ASYMPTOMATIC. RADIAL BAND WITH SCANT BLEEDING NOTED, AIR REINSERTED, WILL CONTINUE TO MONITOR RADIAL BAND. CARDIOLOGY UPDATED REGARDING BRADYCARDIA, NO NEW ORDERS AT THIS TIME, CONTINUE TO MONITOR PATIENT.
--- NOTE | 2022-09-28 16:42 | NUR ---
AIR REMOVED OUT OF RADIAL COMPRESSION BAND. NO BLEEDING NOTED. BANDAID APPLIED TO AREA. NO SWELLING OR TENDERNESS TO SITE NOTED. HR HAS BEEN BETWEEN 35-50, DR. MUÑOZ UPDATED, NO NEW ORDERS. PATIENT CONTINUES TO BE ASYMPTOMATIC. DENIES PAIN. DENIES NEEDS AT THIS TIME. CALL LIGHT WITHIN REACH, AT BEDSIDE.
--- NOTE | 2022-09-28 19:19 | NUR ---
ADMISSION ASSESSMENT COMPLETED. PATIENT IS ALERT AND ORIENTED X4. DENIES PAIN. LUNGS CTA. HR 49. RADIAL BAND OFF AT THIS TIME, NO BLEEDING NOTED. SCANT BLEEDING NOTED TO RIGHT AC IV. FISTULA TO LEFT FOREARM POSITIVE FOR THRILL AND BRUIT. DENIES NEEDS AT THIS TIME, CALL LIGHT IN PLACE.
[2022-09-29 03:29] VITALS: BP 134/62; PULSE 96; TEMP 98.1
[2022-09-29 03:45] LABS: BASO # 0.1 K/mm3 (0.0-0.2); BASO % 0.7 % (0.0-2.0); EOS # 0.2 K/mm3 (0.0-0.7); EOS % 2.4 % (0.0-4.0); GRAN # 4.8 K/mm3 (1.4-6.5); GRAN % 63.3 % (42.2-75.2); HEMOGLOBIN 11.3 g/dl (13.5-18.0); LYMPH # 1.8 K/mm3 (1.2-3.4); LYMPH % 23.8 % (20.0-51.0); MEAN CELL VOLUME 101 fl (80.0-100.0); MEAN CORPUSCULAR HEMOGLOBIN 33 pg (27-31); MEAN CORPUSCULAR HGB CONC 33 g/dl (33.0-37.0); MEAN PLATELET VOLUME 9.8 fl (7.4-10.4); MONO # 0.7 K/mm3 (0.1-0.6); MONO % 9.4 % (1.7-9.3); PLATELET COUNT 193 K/mm3 (130-400); RED BLOOD COUNT 3.43 M/mm3 (4.20-5.60); REDCELL DISTRIBUTION WIDTH-CV 13.5 % (11.5-14.5)
[2022-09-29 03:47] VITALS: BP 154/57; PULSE 41; TEMP 97.7
[2022-09-29 03:47] LABS: HEMATOCRIT 34.7 % (42.0-52.0)
[2022-09-29 04:00] LABS: CALCIUM 8.8 mg/dL (8.4-10.2); CREATININE, serum 9.6 mg/dL (0.72-1.25)
--- NOTE | 2022-09-29 06:30 | NUR ---
THE PATIENT HAD AN UNEVENTFUL NIGHT. DENIES ANY PAIN. SLEPT VERY WELL. NO CONCERNS.
[2022-09-29 07:46] VITALS: BP 150/44; PULSE 44; TEMP 98.2
--- NOTE | 2022-09-29 08:50 | NUR ---
PT ALERT AND ORIENTED COMING BACK FROM THE BATHROOM WITH THE AID ASSISSTANCE. PT DENIES PAIN. PT CALL LIGHT WITHIN REACH, BED ALARM ON. NO FURTHER NEEDS IDENTIFIED.
--- NOTE | 2022-09-29 09:00 | NUR ---
PT ALERT AND ORIENTED COMING BACK FROM THE BATHROOM WITH THE CNAs HELP. PT DENIES PAIN OR DISCOMFORT. CALL LIGHT WITHIN REACH, BED ALARM ON. VITALS STABLE ON ROOM AIR. NO FURTHER NEEDS IDENTIFIED.
--- NOTE | 2022-09-29 09:55 | NUR ---
Initial visit; Patient thanked Plastic Frame Inserter for coming in and visiting. Patient from [place] and was here for a Procedure from Dr. Bentley. Iker is doing well and thanked Plastic Frame Inserter for offering God's blessings and for keeping him in her prayers.
[2022-09-29] MEDS ORDERED: LIPITOR 80MG80 MG PO (12:30)
[2022-09-29] MEDS ORDERED: RANEXA 500MG T500 MG PO (12:30)
== END 2022-09-29 14:45 | disposition home or self-care (01) ==
LOC: COL.CAR 07:11 → MEDICAL 10:41 → COL.CAR 09-29 14:45
PROVIDERS: Internal Medicine Cardiovascular Disease
DX: I25.10 Atherosclerotic heart disease of native coronary artery without angina pectoris (principal); I25.82 Chronic total occlusion of coronary artery; E11.22 Type 2 diabetes mellitus with diabetic chronic kidney disease; I12.0 Hypertensive chronic kidney disease with stage 5 chronic kidney disease or end stage renal disease; R00.1 Bradycardia, unspecified; E87.20 Acidosis, unspecified; N18.6 End stage renal disease; E83.39 Other disorders of phosphorus metabolism; Z95.5 Presence of coronary angioplasty implant and graft; Z79.4 Long term (current) use of insulin; Z79.899 Other long term (current) drug therapy
CPT/HCPCS: OP; C1725; C1769; C1887; J0583; J1644; J1815; J2250; J3010; Q5105; Q9967

== ENCOUNTER 2023-03-22 15:55 | Inpatient (IN) | payer MEDICARE ==
[~2023-03-22] VITALS: Ht 180.3 cm; Wt 96.8 kg
[~2023-03-22 15:55] MED LIST changes: +IMDUR 60MG60 MG/TAB PO; +NORVASC 5MG5 MG/TAB PO; +RANEXA 500MG T500 MG PO; +RENVELA800 MG PO; +REQUIP 1MG T1 MG/TAB PO; +SODIUM BICARBO650 MG PO; +TYLENOL 500MG500 MG PO
[2023-03-22] MEDS ORDERED: NORVASC 10MG10 MG PO (17:32)
[2023-03-22] MEDS ORDERED: TYLENOL 325MG325 MG PO (17:33)
[2023-03-22] MEDS ORDERED: COUMADIN 5MG5 MG/TAB PO (17:33)
[2023-03-22] MEDS ORDERED: COUMADIN 77.5 MG/TAB PO (17:34)
[2023-03-22] MEDS ORDERED: LIPITOR 40MG TA40 MG PO (17:35)
[2023-03-22 18:48] VITALS: BP 123/49; PULSE 60; TEMP 101.7
[2023-03-22 19:28] LABS: HEMOGLOBIN 10.6 g/dl (13.5-18.0); MEAN CELL VOLUME 104 fl (80.0-100.0); MEAN CORPUSCULAR HEMOGLOBIN 34 pg (27-31); MEAN CORPUSCULAR HGB CONC 33 g/dl (33.0-37.0); PLATELET COUNT 151 K/mm3 (130-400); RED BLOOD COUNT 3.11 M/mm3 (4.20-5.60); REDCELL DISTRIBUTION WIDTH-CV 13.8 % (11.5-14.5)
[2023-03-22 19:30] LABS: HEMATOCRIT 32.4 % (42.0-52.0)
[2023-03-22 19:40] VITALS: BP 109/39; PULSE 55; TEMP 98.9
[2023-03-22 19:42] LABS: ALBUMIN 2.6 gm/dL (3.4-4.8); CREATININE, serum 10.54 mg/dL (0.72-1.25); PHOSPHOROUS 4.1 mg/dL (2.3-4.7); POTASSIUM 5.6 mmol/L (3.5-4.5)
[2023-03-22 20:06] VITALS: BP_SYST 109
[2023-03-22 20:36] LABS: BAND 29 % (0-10); LYMPHOCYTE 12 % (20.0-51.0); METAMYELOCYTE 3 % (0-0); NEUTROPHILS 53 % (42.0-75.2); PLATELET ESTIMATE NORMAL (NORMAL)
[2023-03-22 20:37] LABS: HYPOCHROMIA 1+
--- NOTE | 2023-03-22 21:15 | NUR ---
[address] HAWKINS FOR TYLENOL ORDER D/T NO ORDER SHOWING RECIEVED ORDER FOR TYLENOL 500MG Q4 PRN. ATTEMPTE TO PUT IN MAR WAS STILL BEING USE BY DOROTEO CALLED AT 1910 TO CONFIRM tagga WAS RUNNING AGAIN AND ORDERS TO BE PLACED. PT AT 1999 WAS AFEBRIL AND WITHOUT PAIN, 2117 NO MEDICATION ORDERS SHOWING YET.
--- NOTE | 2023-03-22 21:49 | NUR ---
ATTEMPTED TO CALL DOROTEO 183Nisha ABOUT MEDICATIONS NO ANSWER.
[2023-03-22 23:55] VITALS: BP 136/45; PULSE 50; TEMP 98.1
[2023-03-23] VITALS (14 sets, daily range): BP systolic 132–158; BP diastolic 45–65; PULSE 51–98; TEMP 97.5–98.1
[2023-03-23 07:11] LABS: MEAN CELL VOLUME 104 fl (80.0-100.0); MEAN CORPUSCULAR HEMOGLOBIN 34 pg (27-31); MEAN CORPUSCULAR HGB CONC 32 g/dl (33.0-37.0); MEAN PLATELET VOLUME 10.9 fl (7.4-10.4); PLATELET COUNT 159 K/mm3 (130-400); RED BLOOD COUNT 3.27 M/mm3 (4.20-5.60); REDCELL DISTRIBUTION WIDTH-CV 13.2 % (11.5-14.5)
[2023-03-23 07:15] LABS: HEMATOCRIT 33.9 % (42.0-52.0)
[2023-03-23 07:25] LABS: ALBUMIN 2.7 gm/dL (3.4-4.8); CALCIUM 10.5 mg/dL (8.4-10.2); CREATININE, serum 11.83 mg/dL (0.72-1.25); PHOSPHOROUS 6.1 mg/dL (2.3-4.7); POTASSIUM 5.3 mmol/L (3.5-4.5)
[2023-03-23 08:08] LABS: BAND 19 % (0-10); LYMPHOCYTE 16 % (20.0-51.0); NEUTROPHILS 65 % (42.0-75.2); PLATELET ESTIMATE NORMAL (NORMAL)
--- NOTE | 2023-03-23 11:10 | NUR ---
Initial visit: Pt was out of room. Solvent Station Attendant will try again at a later time.
--- NOTE | 2023-03-23 13:23 | NUR ---
The patient was in dialysis. RADU contacted the patient's , Deborah (ph#[phone]), to discuss discharge plan. The patient lives in [place] with his . Deborah states that the patient is normally independent with ADLs and has a cane, FWW, rollator, and tub transfer bench. He receives dialysis T//S around 0900. [place] [facility] transports the patient to dialysis Monday and and Deborah takes him on Saturdays. He is not receiving any home health at this time. The patient's PCP is Dr. Watson Valencia and he obtains his medications from [facility]. The patient does not have a DPOA-HC in EMR, but Deborah states that the patient does have one completed and that it designates her. Deborah shares that she would ultimately like for the patient to return home, but that things are up in the air and she would need him stronger. She states that the planner chief at [facility] was working with Ravi at [facility] for him to go over there for rehab. She states that she would prefer [facility]. RADU informed her how the patient's insurance is [employer] and the two facilities contacted with Stioa in [place] are [facility] and [facility]. The patient's is agreeable to send referrals to both facilities. Ann, IPR Director, notified RADU that the patient's attending placed an IPR consult. RADU contacted and faxed a referral to [facility] and [facility]. Ravi, at [facility], reports that they would need the patient's chair time to be switched to M/W/F between [id number]. RADU notified DYLAN Jones, with Dr. Olson. Karen states they may not be able to change the patient's chair time, due to that schedule being full. She will let this SW know. *Discharge plan: post-acute rehab. Awaiting screens*
--- NOTE | 2023-03-23 14:13 | NUR ---
Monse, at [facility], reports that they have clinically accepted the patient, but will not have a bed until Monday, unless something changes over the weekend.
--- NOTE | 2023-03-23 22:52 | NUR ---
Patient assessed around 2004. Denies having pain and discomfort. Currently on oxygen at 4 L/min via NC. Has dry, non productive cough. Unable to produce sputum. Telemetry called and stated that HR was 40s-50s. Patient had been resting in bed at that time. Asymptomatic. Dr. Olson here at facility, and clarified with him on when to call. Stated to leave the rate at less than 45, but to only call if he was symptomatic. Updated telemetry. Patient in bed with call light within reach. Bed alarm on.
[2023-03-24] VITALS (12 sets, daily range): BP systolic 135–164; BP diastolic 42–74; PULSE 54–78; TEMP 97.6–98
--- NOTE | 2023-03-24 05:48 | NUR ---
Patient has denied having pain and discomfort this shift. Currently on oxygen at 2 L/min via NC. Voices no questions, needs, or concerns at this time. In bed wtih call light within reach. High fall risk precautions in place. Bed alarm on.
[2023-03-24 07:33] LABS: HEMOGLOBIN 10.4 g/dl (13.5-18.0); MEAN CELL VOLUME 103 fl (80.0-100.0); MEAN CORPUSCULAR HEMOGLOBIN 34 pg (27-31); MEAN CORPUSCULAR HGB CONC 33 g/dl (33.0-37.0); MEAN PLATELET VOLUME 10.8 fl (7.4-10.4); PLATELET COUNT 169 K/mm3 (130-400); REDCELL DISTRIBUTION WIDTH-CV 13.1 % (11.5-14.5)
[2023-03-24 07:34] LABS: HEMATOCRIT 31.8 % (42.0-52.0)
[2023-03-24 07:35] LABS: INR 2.6 (0.8-3.0); PROTHROMBIN TIME 30.2 SECONDS (9.7-12.8)
[2023-03-24 07:46] LABS: ALBUMIN 2.4 gm/dL (3.4-4.8); CALCIUM 9.5 mg/dL (8.4-10.2); CREATININE, serum 9.62 mg/dL (0.72-1.25); PHOSPHOROUS 3.6 mg/dL (2.3-4.7); POTASSIUM 4.6 mmol/L (3.5-4.5)
[2023-03-24 08:18] LABS: BAND 7 % (0-10); LYMPHOCYTE 3 % (20.0-51.0); NEUTROPHILS 85 % (42.0-75.2)
[2023-03-24 08:20] LABS: PLATELET ESTIMATE NORMAL (NORMAL)
--- NOTE | 2023-03-24 08:57 | NUR ---
PATIENT HAS TAKEN MORNING MEDICATIONS AND EATEN BREAKFAST. 1 SMALL BM THIS AM ON BEDPAN. PLAN IS FOR DIALYSIS THIS AM. PATIENT UNDERSTANDS.
--- NOTE | 2023-03-24 10:56 | NUR ---
PATIENT WENT DOWN TO DIALYSIS VIA BED AT 1000. NO ISSUES WITH TRANSFER. PORTABLE OXYGEN TANK 2LNC WITH PATIENT AND CHART ON BED.
--- NOTE | 2023-03-24 12:36 | NUR ---
Warfarin Follow-up Pharmacy Note Current regimen: Warfarin 5 mg SuTuThSa and 7.5 mg MoWeFr LABS: INR 2.6 <- 2 Changes in therapy: Will change Warfarin to 5 mg po qHS starting tonight with jump in INR and while receiving Azithromycin. Pharmacy will continue to closely monitor daily INR levels.
--- NOTE | 2023-03-24 15:56 | NUR ---
SW faxed updates to [facility] and [facility].
--- NOTE | 2023-03-24 17:57 | NUR ---
PATIENT IS HAVING A GOOD DAY. DID COMPLAIN OF PAIN 1X IN DIALYSIS. STATED, "MY LOWER BACK IS HURTING A LITTLE BIT." GAVE 650MG OF TYLENOL. PATIENT STILL HAVING TREMORS DUE TO PARKINSONS, BUT THEY SEEM TO HAVE DOWN SOMEWHAT THIS SHIFT. NURSING NOTICED SLIGHT CHANGE WHILE PATIENT IS FEEDING HIMSELF MEALS. BED IS LOW. ALARM ON. [id number] UP. CALL LIGHT NEXT TO PATIENT.
[2023-03-25] VITALS (15 sets, daily range): BP systolic 151–167; BP diastolic 43–59; PULSE 53–64; TEMP 97.5–102.1
--- NOTE | 2023-03-25 01:11 | NUR ---
Shift assessment performed. He is alert and oriented. He is on 2 L O2. He is having tremors consistent with his Parkinsons Disease. There is some mild redness present on his bottom that is blanchable. At about 2330 his BP read at 164/50. PRN Apresoline administered as ordered. While administering this medication, the patient choked on his water and had a coughing episode. I asked the pt and he states that his drinks are always thickened at home. He has been seen by speech but only concerning his language. A new consult for speech will be ordered and meds will be given with applesauce for remainer of the shift.
[2023-03-25 06:58] LABS: HEMOGLOBIN 10.6 g/dl (13.5-18.0); MEAN CELL VOLUME 104 fl (80.0-100.0); MEAN CORPUSCULAR HEMOGLOBIN 33 pg (27-31); MEAN CORPUSCULAR HGB CONC 32 g/dl (33.0-37.0); MEAN PLATELET VOLUME 10.7 fl (7.4-10.4); PLATELET COUNT 190 K/mm3 (130-400); RED BLOOD COUNT 3.21 M/mm3 (4.20-5.60); REDCELL DISTRIBUTION WIDTH-CV 13.2 % (11.5-14.5)
[2023-03-25 06:59] LABS: HEMATOCRIT 33.4 % (42.0-52.0)
[2023-03-25 07:02] LABS: INR 2.7 (0.8-3.0); PROTHROMBIN TIME 31.5 SECONDS (9.7-12.8)
[2023-03-25 07:14] LABS: ALBUMIN 2.5 gm/dL (3.4-4.8); CALCIUM 9.8 mg/dL (8.4-10.2); CREATININE, serum 8.62 mg/dL (0.72-1.25); PHOSPHOROUS 2.9 mg/dL (2.3-4.7); POTASSIUM 4.7 mmol/L (3.5-4.5)
[2023-03-25 08:13] LABS: BAND 12 % (0-10); EOSINOPHIL 1 % (0-4); LYMPHOCYTE 13 % (20.0-51.0); NEUTROPHILS 66 % (42.0-75.2)
[2023-03-25 08:14] LABS: PLATELET ESTIMATE NORMAL (NORMAL)
--- NOTE | 2023-03-25 08:16 | NUR ---
Pt sitting up in bed eating breakfast upon this nurse's entry. A&Ox4. AM medications given in applesauce PO w/o difficulty. Shift assessment performed. Hand editor map strong bilaterally. Pupills are PERRLA. No speech deficits noted. Respirations are even and unlabored w/ O2 on @ 2L via NC. Pt denies SOA or dyspnea. No cyanosis to lips or extremities. Pt does have visible tremors d/t Parkinson's. No complaints or concerns. Call light in reach.
--- NOTE | 2023-03-25 10:42 | NUR ---
Karen RICHARDSON consults regarding patient's discharge plan. Patient is recommended for IPR over 2 pending SNF referral based on need for more intensive rehabilitation services. Regulatory Agency Director reviewed patient record noting no referral to IPR yet made at this time. Regulatory Agency Director to complete IPR referral this date.
--- NOTE | 2023-03-25 14:43 | NUR ---
Pt events and promotions assistant light requesting PRN APAP. Upon entry to room, pt is sitting in bed watching tv. No signs of distress or discomfort apparent. Pt reports that after PT, he began to have pain in his back and knees 8/10 aching. PRN APAP administered in apple sauce. Pt tolerates this well. No other complaints or concerns. Call light in reach.
--- NOTE | 2023-03-25 16:45 | NUR ---
This nurse was informed by PCT that pt. temp was elevated @ 101.1 axillary d/t pt being a primarily oral breather. This nurse checked pt temp orally and temp 98.4. Axillary temp checked again and 102.1 reading. This nurse consulted w/ PARKER Roa on notification process for provider. Rectal temp to be collected for most accurate temp. Pt reporting need to have BM. Pt positioned onto bedpan. Large soft brown BM voided. Pericare provided. Rectal temp 101.6. Pt is reporting feeling "hot" and has flat sheet covering him. Pt denies any other febrile symptoms. Respirations are even and unlabored w/ O2 on @ 2L via NC. Pt denies SOA or dyspnea. Will attempt to contact provider.
--- NOTE | 2023-03-25 18:29 | NUR ---
Pt temp rechecked. 101.3 axillary. Pt cont to report feeling "hot" but has thin flat sheet on. Temperature of room decreased. APAP 1000mg PRN admin PO w/ applesauce. Pt tolerated well. Respirations are even and unlabored on O2 @ 2L via NC. Pt denies SOA or dyspnea. No cyanosis to lips or extremities. Pt denies any chills or body aches. Will pass on to shift lab technician nurse to recheck pt temp in one hour after admin per provider INSPECTOR FILTERS verbal order.
[2023-03-26] VITALS (10 sets, daily range): BP systolic 146–181; BP diastolic 41–54; PULSE 48–54; TEMP 97.3–98.7
--- NOTE | 2023-03-26 04:50 | NUR ---
Assessment and meds administered around 2114. A&Ox4. Pt has no more high temperatures. Pt swallowed without difficulty his meds with apple sauce. RFA INT is CDI. LFA fistula is CDI, no dressing. On O2 at 2L per NC. No insulin was needed. Pt was repositioned in bed. Belongings and call light are within reach. Around 99 pt had a small BM formed.
--- NOTE | 2023-03-26 04:57 | NUR ---
PCT notified to this CAN SORTER that pt was complaining of pain on BLE. Tylenols was administered and warm blanket was placed on Lower extremities. Pt reported feeling much better and was able to sleep.
[2023-03-26 07:52] LABS: HEMATOCRIT 30.5 % (42.0-52.0); HEMOGLOBIN 9.7 g/dl (13.5-18.0); MEAN CELL VOLUME 104 fl (80.0-100.0); MEAN CORPUSCULAR HEMOGLOBIN 33 pg (27-31); MEAN CORPUSCULAR HGB CONC 32 g/dl (33.0-37.0); MEAN PLATELET VOLUME 10.5 fl (7.4-10.4); PLATELET COUNT 195 K/mm3 (130-400); RED BLOOD COUNT 2.93 M/mm3 (4.20-5.60); REDCELL DISTRIBUTION WIDTH-CV 13.2 % (11.5-14.5)
[2023-03-26 08:08] LABS: ALBUMIN 2.1 gm/dL (3.4-4.8); CALCIUM 9.4 mg/dL (8.4-10.2); CREATININE, serum 10.41 mg/dL (0.72-1.25); PHOSPHOROUS 3.6 mg/dL (2.3-4.7); POTASSIUM 4.6 mmol/L (3.5-4.5)
[2023-03-26 08:11] LABS: INR 3.2 (0.8-3.0)
[2023-03-26 08:46] LABS: BAND 7 % (0-10); LYMPHOCYTE 12 % (20.0-51.0); METAMYELOCYTE 2 % (0-0)
[2023-03-26 08:47] LABS: NEUTROPHILS 73 % (42.0-75.2); PLATELET ESTIMATE NORMAL (NORMAL)
--- NOTE | 2023-03-26 11:30 | NUR ---
Agree with student nurse assessment of the patient. Patient A&Ox3. VSS 2L NC O2. IV CDI. Denies pain and discomfort. Call light within reach. Bed alarm on
--- NOTE | 2023-03-26 12:38 | NUR ---
Mobile Tester rounds: Patient was in recliner. Stated that it felt good to be out of the bed. Patient had had pneumonia and that made it difficult for him to talk much. Mobile Tester read from a book of Psalms in which each Psalm was more clearly defined. Patient enjoyed the reading. Mobile Tester then read from Psalms until Patient fell asleep. Mobile Tester left room quietly so that Patient could remain asleep.
[2023-03-27] VITALS (11 sets, daily range): BP systolic 146–173; BP diastolic 42–71; PULSE 47–60; TEMP 97.5–98.7
--- NOTE | 2023-03-27 00:42 | NUR ---
Assessment completed around 2039. Medication given per emar. Pt reporting mild abdominal pain, and attempted to use bedpan twice. No BM. When administering his medication INR was 3.2, and this PEN MAKER attempted to call Karen to ask if pt was ok to take his coumadin. Phone call was not answered. Reattempted to call around 2299, since pt was reporting more abdominal pain and reported that he was nauseous and threw up in emesis bag a small amount. Again phone call was not answered. Zofran IV administered per Nichelle Bah RN. BP was 181/50 when checking VS. Hydralazine PO and coumadin were not administered since pt is reporting feeling nauseous at this moment. Pt reporting having trouble having a BM. Attempted to johnson aKren again, and no answer yet. Will continue monitor pt.
--- NOTE | 2023-03-27 01:42 | NUR ---
Pt had a moderate amount of soft BM, and reported feeling better. BP rechecked: 162/45. Pt reports no more nausea. Coumadin given after reviewing pt notes regarding adjusted dose with INR of 3.2. PO hydralazine given as well since pt is tolerating oral meds. Warm blanket given for comfort.
--- NOTE | 2023-03-27 03:18 | NUR ---
Pt reported having abdominal pain again. He attempted to use the bedpan, and had no BM. Passing gas without difficulty. Karen, injection molding engineer answered phone call, and she was informed about pt's abdominal pain with some distension, and late administration of Coumadin, and PO Hydralazine for elevated BP. Pt is no longer having N/V. Verbal orders received to administer Tramadol, PO.
--- NOTE | 2023-03-27 04:29 | NUR ---
Pt had another BM, which less soft and more loose. Pt reports pain relief right after having BM. Pt got repositioned with belongings and call light within reach.
[2023-03-27 07:30] LABS: MEAN CELL VOLUME 101 fl (80.0-100.0); MEAN CORPUSCULAR HGB CONC 33 g/dl (33.0-37.0); MEAN PLATELET VOLUME 10.3 fl (7.4-10.4); PLATELET COUNT 237 K/mm3 (130-400); REDCELL DISTRIBUTION WIDTH-CV 13.2 % (11.5-14.5)
[2023-03-27 07:43] LABS: HEMOGLOBIN 9.7 g/dl (13.5-18.0); MEAN CORPUSCULAR HEMOGLOBIN 33 pg (27-31)
[2023-03-27 07:44] LABS: HEMATOCRIT 29.4 % (42.0-52.0)
[2023-03-27 07:49] LABS: ALBUMIN 2.1 gm/dL (3.4-4.8); CALCIUM 9.5 mg/dL (8.4-10.2); PHOSPHOROUS 4.3 mg/dL (2.3-4.7); POTASSIUM 4.7 mmol/L (3.5-4.5)
--- NOTE | 2023-03-27 07:59 | NUR ---
PT RESTING COMFORTABLY IN BED. AGREE WITH STUDENT DELIA'S ASSESSMENTS THIS AM. PT IS A//O X4, DENIES N/V OR PAIN AT THIS TIME.
[2023-03-27 08:21] LABS: BAND 3 % (0-10); EOSINOPHIL 2 % (0-4); LYMPHOCYTE 11 % (20.0-51.0); METAMYELOCYTE 4 % (0-0); NEUTROPHILS 70 % (42.0-75.2); PLATELET ESTIMATE NORMAL (NORMAL)
[2023-03-27 08:36] LABS: INR 3.7 (0.8-3.0); PROTHROMBIN TIME 43.4 SECONDS (9.7-12.8)
--- NOTE | 2023-03-27 09:09 | NUR ---
PT TO DIALYSIS AT THIS TIME.
--- NOTE | 2023-03-27 15:33 | NUR ---
RADU attempted to address patients chair time with who states that he was unaware of the time needing to be changed. Informed that the time change was needed due to placement. RADU notified by IPR director that they are unable to accept this patient due to his current functioning. Clinical updates sent to Ravi at [facility] and Monse at [facility].
[2023-03-27 18:10] LABS: MEAN CELL VOLUME 102 fl (80.0-100.0); MEAN CORPUSCULAR HGB CONC 33 g/dl (33.0-37.0); MEAN PLATELET VOLUME 10.4 fl (7.4-10.4); PLATELET COUNT 251 K/mm3 (130-400); RED BLOOD COUNT 2.88 M/mm3 (4.20-5.60); REDCELL DISTRIBUTION WIDTH-CV 13.4 % (11.5-14.5)
[2023-03-27 18:14] LABS: HEMATOCRIT 29.5 % (42.0-52.0); HEMOGLOBIN 9.6 g/dl (13.5-18.0); MEAN CORPUSCULAR HEMOGLOBIN 33 pg (27-31)
[2023-03-27 18:25] LABS: BILIRUBIN,TOTAL 0.4 mg/dL (0.2-1.2); CALCIUM 9.2 mg/dL (8.4-10.2); CREATININE, serum 7.63 mg/dL (0.72-1.25); POTASSIUM 3.9 mmol/L (3.5-4.5); TOTAL PROTEIN 6.4 gm/dL (6.2-8.1)
[2023-03-27 18:45] LABS: BAND 17 % (0-10); EOSINOPHIL 3 % (0-4); LYMPHOCYTE 6 % (20.0-51.0); METAMYELOCYTE 5 % (0-0); NEUTROPHILS 59 % (42.0-75.2); PLATELET ESTIMATE NORMAL (NORMAL)
[2023-03-27 18:49] LABS: HYPOCHROMIA 1+
--- NOTE | 2023-03-27 19:45 | NUR ---
VITAMIN K HAS BEEN COMPLETED.
--- NOTE | 2023-03-27 21:55 | NUR ---
CALL TO PARKER MENDEZ TO DO A LEAD CHECK D/T LEADS BEING OFF. PATIENT TRANSFERRING TO [facility]. TELE D/C'D.
--- NOTE | 2023-03-27 21:59 | NUR ---
1944 PT ASSESSED, VSS MEDICATIONS GIVEN, NO COMPLAINTS AT THAT TIME. 2144 PT PUT ON [place]URNEE FOR EMS TO TRANSPORT REPORT GIVEN TO EMS. 2158 REPORT CALLED TO NURSE SHOAIB AT [facility], ALSO CALLED AND TOLD THAT PATIENT WAS IN TRANSIT TO [facility].
== END 2023-03-27 21:55 | DRG 871 ==
LOC: MEDICAL 15:55
PROVIDERS: Registered Nurse; Surgery; ADMIT Internal Medicine Nephrology
PROC: 5A1D70Z Performance of Urinary Filtration, Intermittent, Less than 6 Hours Per Day (ICD-10-PCS; principal; 2023-03-23)
DX: A41.9 Sepsis, unspecified organism (principal); J18.9 Pneumonia, unspecified organism; N18.6 End stage renal disease; I13.2 Hypertensive heart and chronic kidney disease with heart failure and with stage 5 chronic kidney disease, or end stage renal disease; I48.20 Chronic atrial fibrillation, unspecified; K25.9 Gastric ulcer, unspecified as acute or chronic, without hemorrhage or perforation; R00.1 Bradycardia, unspecified; T46.2X5A Adverse effect of other antidysrhythmic drugs, initial encounter; G20 Parkinson's disease; M25.562 Pain in left knee; M25.561 Pain in right knee; E11.22 Type 2 diabetes mellitus with diabetic chronic kidney disease; I50.9 Heart failure, unspecified; D63.1 Anemia in chronic kidney disease; E83.39 Other disorders of phosphorus metabolism; M51.36 Other intervertebral disc degeneration, lumbar region; M47.816 Spondylosis without myelopathy or radiculopathy, lumbar region; M48.061 Spinal stenosis, lumbar region without neurogenic claudication; M47.817 Spondylosis without myelopathy or radiculopathy, lumbosacral region; E87.5 Hyperkalemia; E78.5 Hyperlipidemia, unspecified; N40.0 Benign prostatic hyperplasia without lower urinary tract symptoms; E11.42 Type 2 diabetes mellitus with diabetic polyneuropathy; M19.90 Unspecified osteoarthritis, unspecified site; I25.10 Atherosclerotic heart disease of native coronary artery without angina pectoris; K21.9 Gastro-esophageal reflux disease without esophagitis; Z88.4 Allergy status to anesthetic agent; Z79.01 Long term (current) use of anticoagulants; I25.2 Old myocardial infarction; Z99.2 Dependence on renal dialysis; Z95.5 Presence of coronary angioplasty implant and graft; Z85.820 Personal history of malignant melanoma of skin; Z79.4 Long term (current) use of insulin; Z79.899 Other long term (current) drug therapy
CPT/HCPCS: A9284; J0456; J0696; J2405; J3430; J7050; Q9967

== ENCOUNTER → 2024-02-15 | Day surgery (SDC) | payer MEDICARE ==
[~2024-02-15] VITALS: Ht 182.9 cm; Wt 80.5 kg
[~2024-02-15] MED LIST changes: +CIPRO 500MG TA500 MG PO; +COUMADIN 6MG6 MG/TAB PO; +DULCOLAX STOOL100 MG PO; +EUTHYROX125 MCG PO; +NOVOLOG FLEX100 U/ML SQ; +NS 100 ML IV.SOLN. IR SCH; +PARCOPA 25/101 UDTAB NG; +PEPCID 20MG TAB20 MG PO; -REQUIP 1MG T1 MG/TAB PO; +REQUIP2 MG PO; +SINEMET 25/101 UDTAB PO; +fentaNYL 50 MCG/ML 2 ML VIAL IV SCH
[2024-02-15 14:38] VITALS: BP 144/64; PULSE 61; TEMP 96
[2024-02-15 14:43] LABS: INR 1.8 (0.8-3.0)
[2024-02-15 15:12] VITALS: BP 154/65; PULSE 58
--- NOTE | 2024-02-15 15:14 | NUR ---
See merge for all medication administration and vital sign times.
[2024-02-15 15:45] VITALS: BP 163/71; PULSE 58; TEMP 96.9
--- NOTE | 2024-02-15 15:45 | NUR ---
Patient returned from having loop recorder removed at approx 1545. Patient was alert and oriented and in stable condition. Patient has gauze dressing over site which was CDI; patient tolerated procedure well.
--- NOTE | 2024-02-15 15:46 | NUR ---
Bedside report completed with Martha Ascencio. Vancomycin infusing at 250 ml/hr. Call light within reach. Insertion site reviewed. Emily ASCENCIO denies questions concerns. [phone] for questions. Patient's spouse at bedside for report.
[2024-02-15 16:30] VITALS: BP 181/85
[2024-02-15 17:00] VITALS: BP 192/80
[2024-02-15 17:30] VITALS: BP 193/72
--- NOTE | 2024-02-15 18:00 | NUR ---
Patient discharged home after reviewing discharge information; patient was taken out in wheelchair by this nurse, accompanied by his . Patient transferred from the bed to the wheelchair and then to the vehicle with one person assist; all questions were answered. Patient discharged in stable condition.
== END ==
LOC: COL.CAR 09:00
PROVIDERS: Internal Medicine Cardiovascular Disease
DX: Z45.09 Encounter for adjustment and management of other cardiac device (principal); I48.0 Paroxysmal atrial fibrillation; I12.0 Hypertensive chronic kidney disease with stage 5 chronic kidney disease or end stage renal disease; N18.6 End stage renal disease; I34.0 Nonrheumatic mitral (valve) insufficiency; I25.10 Atherosclerotic heart disease of native coronary artery without angina pectoris; E78.2 Mixed hyperlipidemia; E66.9 Obesity, unspecified; Z68.29 Body mass index [BMI] 29.0-29.9, adult; Z79.01 Long term (current) use of anticoagulants; Z95.5 Presence of coronary angioplasty implant and graft; Z79.899 Other long term (current) drug therapy
CPT/HCPCS: J0690; J3010; J3370; J7050